=== PATIENT | female | born 1955 | race American Indian/Alaskan Native ===

== ENCOUNTER 2016-12-15 11:11 | Emergency (ER) | payer BC, OTHER ==
[2016-12-15 11:31] VITALS: BP 169/86
[2016-12-15] MEDS ORDERED: Ondansetron 4 MG/2 ML SDV IV ONE (11:39)
[2016-12-15] MEDS ORDERED: Sodium Chloride 0.9% 1,000 ML IV ONE (11:39)
[2016-12-15] MEDS ORDERED: Sodium Chloride 0.9% 10 ML Syringe FLUSH PRN (11:39)
[2016-12-15] MEDS ORDERED: Ketorolac 30 MG/ML SDV IVPUSH ONE (11:40)
[2016-12-15] MEDS ORDERED: cefTRIAXone 1 GM in Sodium Chloride 0.9% 50 ML IV ONE (11:40)
[2016-12-15 12:26] LABS: CHLORIDE,CL 103 mmol/L (101-111); SODIUM,NA 141 mmol/L (135-145)
--- NOTE | 2016-12-15 12:36 | EDM.PDOC ---
Scribed by Vicenta Cuellar 12/15/16 1234 for Valdemar Crump MD ED HPI GENERAL MEDICAL PROBLEM - General Chief Complaint: Genitourinary Problem Stated Complaint: [id number] KIDNEY INFECTION OR UTI Time Seen by Provider: 12/15/16 11:36 Source of Information: Reports: Patient, RN, RN Notes Reviewed History Limitations: Reports: No Limitations - History of Present Illness INITIAL COMMENTS - FREE TEXT/NARRATIVE: Complaint of onset of mild dysuria 3 days ago which has worsened and last evening developed fever and chills with bilateral flank pain and nausea. Admits to suprapubic abdominal pain Denies vomiting or blood in in urine. Quality: Reports: Ache Severity: Severe Improves with: Reports: None Worsens with: Reports: None Associated Symptoms: Reports: No Other Symptoms Bilateral Lower Back Pain Score (Numeric/FACES): 8 - Related Data Allergies Allergy/AdvReac Type Severity Reaction Status Date / Time codeine Allergy Cannot Verified 12/15/16 11:32 Remember gabapentin Allergy Cannot Verified 12/15/16 11:32 Remember morphine Allergy Rash Verified 12/15/16 11:32 venom-honey bee Allergy Cannot Verified 12/15/16 11:32 [bee venom (honey bee)] Remember Home Meds: Home Meds Aspirin [Aspirin EC] 1 tab PO DAILY 12/30/13 [History] Ibuprofen [Motrin] 1 tab PO ASDIRECTED PRN 12/30/13 [History] Lisinopril [Prinivil] 20 mg PO DAILY 12/30/13 [History] Tamoxifen [Nolvadex] 20 mg PO DAILY 12/30/13 [History] Triamterene/Hydrochlorothiazid [Triamterene-HCTZ 37.5-25 MG] 1 tab PO ASDIRECTED 12/30/13 [History] Venlafaxine HCl [Venlafaxine HCl ER] 75 mg PO BID 12/30/13 [History] Pantoprazole [ProTONIX] 40 mg PO BID 03/12/16 [History] Albuterol Sulfate [Proventil Hfa] 6.7 gm IH Q6HR PRN #1 hfa.aer.ad 03/13/16 [Rx] Amoxicillin/Potassium Clav [Augmentin 875-125 Tablet] 1 each PO BID #14 tablet 03/13/16 [Rx] Benzocaine/Cetylpyrd/Menthol [Cepacol Sore Throat] 1 lozenge MUCMEM Q4HR PRN # 15 frida 03/13/16 [Rx] Fluticasone/Salmeterol [Advair Diskus 100-50] 1 puff INH BID #1 diskus 03/13/16 [Rx] guaiFENesin [Robitussin] 100 mg PO Q6H PRN #100 ml 03/13/16 [Rx] predniSONE [Prednisone] 10 mg PO DAILY #20 tab.ds.pk 03/13/16 [Rx] Past Medical History HEENT History: Reports: None Cardiovascular History: Reports: High Cholesterol, Hypertension Respiratory History: Reports: Asthma, COPD Other Gastrointestinal History: fatty liver Genitourinary History: Reports: None 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 Musculoskeletal History: Reports: None Neurological History: Reports: None Psychiatric History: Reports: Anxiety, Depression Endocrine/Metabolic History: Reports: None Oncologic (Cancer) History: Reports: Breast Dermatologic History: Reports: None - Past Surgical History Musculoskeletal Surgical History: Reports: Carpal Tunnel Social & Family History - Family History Family Medical History: Noncontributory Cardiac: Reports: CAD, High Cholesterol, Hypertension, [place] Respiratory: Reports: COPD GI: Reports: Cholelithiasis Endocrine/Metabolic: Reports: Diabetes, type II Oncologic: Reports: Breast - Tobacco Use Smoking Status *Q: Heavy Tobacco Smoker Years of Tobacco use: 30 Packs/Tins Daily: 0.5 Second Hand Smoke Exposure: Yes - Alcohol Use Days Per Week of Alcohol Use: 0 - Recreational Drug Use Recreational Drug Use: No - Living Situation & Occupation Living situation: Reports: with Family, Single Occupation: Employed ED ROS GENERAL - Review of Systems Review Of Systems: ROS reveals no pertinent complaints other than HPI. ED EXAM, RENAL/ - Physical Exam Exam: See Below Exam Limited By: No Limitations General Appearance: Alert, WD/WN, No Apparent Distress, Obese Eye Exam: Bilateral Eye: Normal Inspection Head: Atraumatic, Normocephalic Neck: Normal Inspection, Supple, Non-Tender, Full Range of Motion Respiratory/Chest: No Respiratory Distress, Lungs Clear, Normal Breath Sounds, No Accessory Muscle Use, Chest Non-Tender Cardiovascular: Regular Rate, Rhythm, Tachycardia GI/Abdominal: Normal Bowel Sounds, Soft, Non-Tender, No Distention, No Abnormal Bruit, Other (mild suprapubic tenderness to palpation, otherwise normal. Obese abdominal exam.). No: Guarding, Rigid, Rebound (Female) Exam: Deferred Rectal (Female) Exam: Deferred Back Exam: Full Range of Motion, CVA Tenderness (L), CVA Tenderness (R) Extremities: Normal Inspection Neurological: Alert, Oriented, CN II-XII Intact, Normal Cognition, Normal Gait, Normal Reflexes, No Motor/Sensory Deficits Psychiatric: Normal Affect, Normal Mood Skin Exam: Warm, Dry, Intact, Normal Color, No Rash Course - Vital Signs Last Recorded V/S: Last Vital Signs Temp 35.9 C 12/15/16 11:29 Pulse 103 H 12/15/16 11:29 Resp 18 12/15/16 11:29 BP 169/86 H 12/15/16 11:29 Pulse Ox 95 12/15/16 11:29 - Orders/Labs/Meds Orders: Active Orders 24 hr Category Date Time Status Peripheral IV Care [RC] . DIRECTED Care 12/15/16 11:39 Active CULTURE URINE [RM] Stat Lab 12/15/16 11:25 Received Sodium Chloride 0.9% [Normal Saline] 1,000 ml Med 12/15/16 11:39 Active IV .BOLUS Sodium Chloride 0.9% [Saline Flush] Med 12/15/16 11:39 Active 10 ml FLUSH ASDIRECTED PRN Peripheral IV Insertion Adult [OM.PC] Stat Oth 12/15/16 11:39 Ordered Medication Orders Sodium Chloride (Normal Saline) 1,000 mls @ 999 mls/hr IV .BOLUS ONE Stop: 12/15/16 12:39 Last Admin: 12/15/16 11:58 Dose: 999 mls/hr Sodium Chloride (Saline Flush) 10 ml FLUSH ASDIRECTED PRN PRN Reason: Keep Vein Open Last Admin: 12/15/16 11:58 Dose: 10 ml Labs: Laboratory Tests 12/15/16 12/15/16 12/15/16 Range/Units 11:25 12:00 12:00 WBC 11.5 H (5.0-10.0) 10^3/uL RBC 5.29 (4.2-5.4) 10^6/uL Hgb 15.7 (12.0-16.0) g/dL Hct 47.3 H (37.0-47.0) % MCV 89.4 (80-100) fL MCH 29.7 (27.0-34.0) pg MCHC 33.2 (33.0-35.0) g/dL Plt Count 213 (150-450) 10^3/uL Neut % (Auto) 66.7 (42.2-75.2) % Lymph % (Auto) 22.5 (20.5-50.1) % [place] % (Auto) 8.6 H (2-8) % Eos % (Auto) 1.7 (1.0-3.0) % Baso % (Auto) 0.5 (0.0-1.0) % Sodium 141 (135-145) mmol/L Potassium 4.0 (3.6-5.0) mmol/L Chloride 103 (101-111) mmol/L Carbon Dioxide 26.0 (21.0-31.0) mmol/L Anion Gap 16.0 BUN 19 H (7-18) mg/dL Creatinine 0.9 (0.6-1.3) mg/dL Est Cr Clr Drug Dosing 57.10 mL/min Estimated GFR (MDRD) > 60 Glucose 102 (74-105) mg/dL Calcium 9.1 (8.4-10.2) mg/dl Urine Color Yellow (YELLOW) Urine Appearance Cloudy (CLEAR) Urine pH 8.0 (5.0-9.0) Ur Specific [place] 1.015 (1.005-1.030) Urine Protein 30 H (NEGATIVE) Urine Glucose (UA) Negative (NEGATIVE) Urine Ketones Negative (NEGATIVE) Urine Occult Blood Moderate H (NEGATIVE) Urine Nitrite Negative (NEGATIVE) Urine Bilirubin Negative (NEGATIVE) Urine Urobilinogen 0.2 (0.2-1.0) mg/dL Ur Leukocyte Esterase Large H (NEGATIVE) Urine RBC 40-50 H /HPF Urine WBC >100 H (0-5/HPF) /HPF Ur Epithelial Cells Few /HPF Urine Bacteria Few (0-FEW/HPF) /HPF Meds: Medications Generic Name Dose Route Start Last Admin Trade Name Freq PRN Reason Stop Dose Admin Sodium Chloride 1,000 mls @ 999 mls/hr 12/15/16 11:39 12/15/16 11:58 Normal Saline IV 12/15/16 12:39 999 mls/hr .BOLUS ONE Administration Sodium Chloride 10 ml 07/08/17 11:39 12/15/16 11:58 Saline Flush FLUSH 10 ml ASDIRECTED PRN Administration Keep Vein Open Discontinued Medications Generic Name Dose Route Start Last Admin Trade Name Jay PRN Reason Stop Dose Admin Ceftriaxone Sodium 1 gm/ 50 mls @ 100 mls/hr 12/15/16 11:40 12/15/16 11:58 Sodium Chloride IV 12/15/16 12:09 100 mls/hr ONETIME ONE Administration Ketorolac Tromethamine 30 mg 12/15/16 11:40 12/15/16 11:57 Toradol IVPUSH 12/15/16 11:41 30 mg ONETIME ONE Administration Ondansetron HCl 4 mg 12/15/16 11:39 12/15/16 11:58 Zofran IV 12/15/16 11:40 4 mg ONETIME ONE Administration Departure - Departure Time of Disposition: 12:31 Disposition: Home, Self-Care 01 Condition: Fair Clinical Impression: Pyelonephritis, Dehydration - Discharge Information Instructions: Pyelonephritis, Adult, [id number], Dehydration, Adult, Easy-to- Read Forms: ED Department Discharge Additional Instructions: RX: Phenergan 25mg. *Do not drive while under the influence of this medication. RX: Cipro 500mg. Drink plenty of water. Follow up clinic in 12-17 for urine recheck. - My Orders Last 24 Hours: My Active Orders 12/15/16 11:25 CULTURE URINE [RM] Stat 12/15/16 11:39 Peripheral IV Care [RC] . DIRECTED Sodium Chloride 0.9% [Normal Saline] 1,000 ml IV .BOLUS Sodium Chloride 0.9% [Saline Flush] 10 ml FLUSH ASDIRECTED PRN Peripheral IV Insertion Adult [OM.PC] Stat - Assessment/Plan Last 24 Hours: My Active Orders 12/15/16 11:25 CULTURE URINE [RM] Stat 12/15/16 11:39 Peripheral IV Care [RC] . DIRECTED Sodium Chloride 0.9% [Normal Saline] 1,000 ml IV .BOLUS Sodium Chloride 0.9% [Saline Flush] 10 ml FLUSH ASDIRECTED PRN Peripheral IV Insertion Adult [OM.PC] Stat I have read and agree with the documentation that has been completed regarding this visit. By signing this record, I attest that the documentation was completed in my physical presence and is an accurate record of the encounter.
== END 2016-12-15 13:24 | disposition home or self-care (01) ==
LOC: DL.ED 11:11
DX: N12 Tubulo-interstitial nephritis, not specified as acute or chronic (principal); E86.0 Dehydration; E78.00 Pure hypercholesterolemia, unspecified; I10 Essential (primary) hypertension; J45.909 Unspecified asthma, uncomplicated; J44.9 Chronic obstructive pulmonary disease, unspecified; F41.9 Anxiety disorder, unspecified; F32.9 Major depressive disorder, single episode, unspecified; F17.210 Nicotine dependence, cigarettes, uncomplicated; Z88.5 Allergy status to narcotic agent; Z88.6 Allergy status to analgesic agent; Z88.8 Allergy status to other drugs, medicaments and biological substances; Z91.030 Bee allergy status; Z79.82 Long term (current) use of aspirin; Z79.899 Other long term (current) drug therapy
CPT/HCPCS: 36415; 80048; 81001; 85025; 87086; 96361; 96365; 96375; 99283; J0696; J1885; J2405; J7030; J7050; 87088; 87186

== ENCOUNTER 2017-02-01 18:29 | Emergency (ER) | payer BC, OTHER ==
[2017-02-01 19:02] VITALS: BP 136/79
--- NOTE | 2017-02-01 19:11 | EDM.PDOC ---
ED HPI GENERAL MEDICAL PROBLEM - General Chief Complaint: Eye Problems Stated Complaint: EYES [id number] Time Seen by Provider: 02/01/17 19:06 Source of Information: Reports: Patient History Limitations: Reports: No Limitations - History of Present Illness INITIAL COMMENTS - FREE TEXT/NARRATIVE: states has long h/o eye problems, seen MD told to use regular drops but if need to then get ABX. - Related Data Allergies Allergy/AdvReac Type Severity Reaction Status Date / Time codeine Allergy Cannot Verified 02/01/17 19:01 Remember gabapentin Allergy Cannot Verified 02/01/17 19:01 Remember morphine Allergy Rash Verified 02/01/17 19:01 venom-honey bee Allergy Cannot Verified 02/01/17 19:01 [bee venom (honey bee)] Remember Home Meds: Home Meds Aspirin [Aspirin EC] 1 tab PO DAILY 12/30/13 [History] Ibuprofen [Motrin] 1 tab PO ASDIRECTED PRN 12/30/13 [History] Lisinopril [Prinivil] 20 mg PO DAILY 12/30/13 [History] Tamoxifen [Nolvadex] 20 mg PO DAILY 12/30/13 [History] Triamterene/Hydrochlorothiazid [Triamterene-HCTZ 37.5-25 MG] 1 tab PO ASDIRECTED 12/30/13 [History] Venlafaxine HCl [Venlafaxine HCl ER] 75 mg PO BID 12/30/13 [History] Pantoprazole [ProTONIX] 40 mg PO BID 03/12/16 [History] Albuterol Sulfate [Proventil Hfa] 6.7 gm IH Q6HR PRN #1 hfa.aer.ad 03/13/16 [Rx] Fluticasone/Salmeterol [Advair Diskus 100-50] 1 puff INH BID #1 diskus 03/13/16 [Rx] Magnesium Oxide [Magnesium] 800 mg PO DAILY 02/01/17 [History] Past Medical History HEENT History: Reports: None Cardiovascular History: Reports: High Cholesterol, Hypertension Respiratory History: Reports: Asthma, COPD Other Gastrointestinal History: fatty liver Genitourinary History: Reports: None [employer]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 Musculoskeletal History: Reports: None Neurological History: Reports: None Psychiatric History: Reports: Anxiety, Depression Endocrine/Metabolic History: Reports: None Oncologic (Cancer) History: Reports: Breast Dermatologic History: Reports: None - Past Surgical History Musculoskeletal Surgical History: Reports: Carpal Tunnel Social & Family History - Family History Family Medical History: Noncontributory Cardiac: Reports: CAD, High Cholesterol, Hypertension, [place] Respiratory: Reports: COPD GI: Reports: Cholelithiasis Endocrine/Metabolic: Reports: Diabetes, type II Oncologic: Reports: Breast - Tobacco Use Smoking Status *Q: Heavy Tobacco Smoker Years of Tobacco use: 30 Packs/Tins Daily: 0.5 Second Hand Smoke Exposure: Yes - Alcohol Use Days Per Week of Alcohol Use: 0 - Recreational Drug Use Recreational Drug Use: No - Living Situation & Occupation Living situation: Reports: with Family, Single Occupation: Employed ED ROS GENERAL - Review of Systems Review Of Systems: ROS reveals no pertinent complaints other than HPI. ED EXAM GENERAL W FULL EYE - Physical Exam Exam: See Below Exam Limited By: No Limitations General Appearance: Alert, WD/WN, No Apparent Distress Eye Exam: Bilateral Eye: Conjunctival Injection (mild) Eyelids: Bilateral: Edema (mild), Erythema (mild) Conjunctiva & Sclera: Bilateral: Injected (minimal) Cornea Exam: Bilateral: Normal Appearance Extraocular Movements: Bilateral: Intact Pupillary Size: Bilateral: 4 mm Pupillary Reaction: Bilateral: Brisk Anterior Chamber: Bilateral: Normal Appearance Ears: Hearing Grossly Normal Throat/Mouth: Normal Voice, No Airway Compromise Head: Atraumatic Neck: Non-Tender, Full Range of Motion Respiratory/Chest: No Respiratory Distress Cardiovascular: Regular Rate, Rhythm GI/Abdominal: Soft, Non-Tender Neurological: Alert, Oriented, Normal Cognition, Normal Gait, No Motor/Sensory Deficits Psychiatric: Normal Affect, Normal Mood Skin Exam: Warm, Dry, Normal Color Lymphatic: No Adenopathy Course - Vital Signs Last Recorded V/S: Last Vital Signs Temp 35.9 C 02/01/17 18:59 Pulse 95 02/01/17 18:59 Resp 18 02/01/17 18:59 BP 136/79 02/01/17 18:59 Pulse Ox 95 02/01/17 18:59 Departure - Departure Time of Disposition: 19:09 Disposition: Home, Self-Care 01 Condition: Good Clinical Impression: Conjunctivitis Qualifiers: Conjunctivitis type: serous Laterality: bilateral Qualified Code(s): H10.233 - Serous conjunctivitis, except viral, bilateral - Discharge Information Instructions: Bacterial Conjunctivitis, [id number] Additional Instructions: 1) don't rub eyes 2) keep eyes clean 3) follow up at clinic or recheck as needed rx given; gentamycin eye drops 2 drops qid x 1 week
== END 2017-02-01 19:13 | disposition home or self-care (01) ==
LOC: DL.ED 18:29
DX: H10.233 Serous conjunctivitis, except viral, bilateral (principal); E78.00 Pure hypercholesterolemia, unspecified; I10 Essential (primary) hypertension; J44.9 Chronic obstructive pulmonary disease, unspecified; F41.9 Anxiety disorder, unspecified; F32.9 Major depressive disorder, single episode, unspecified; F17.210 Nicotine dependence, cigarettes, uncomplicated; Z79.899 Other long term (current) drug therapy; Z79.82 Long term (current) use of aspirin; Z88.5 Allergy status to narcotic agent; Z91.030 Bee allergy status
CPT/HCPCS: 99283

== ENCOUNTER 2017-03-09 13:07 | Emergency (ER) | payer BC, OTHER | END 2017-03-09 14:13 | disposition left against medical advice (07) | LOC: DL.ED 13:07 | DX: Z53.21 Procedure and treatment not carried out due to patient leaving prior to being seen by health care provider (principal) ==

== ENCOUNTER 2018-09-06 15:21 | Emergency (ER) | payer BC, OTHER ==
[2018-09-06] MEDS ORDERED: Acetaminophen/HYDROcodone 325-5 MG Tab PO ONE (15:22)
[2018-09-06] MEDS ORDERED: Ondansetron 4 MG/2 ML SDV IV ONE (15:53)
[2018-09-06] MEDS ORDERED: Ketorolac 30 MG/ML SDV IVPUSH ONE (15:53)
[2018-09-06] MEDS ORDERED: Lactated Ringers 1,000 ML IV ONE (15:54)
[2018-09-06] MEDS ORDERED: diphenhydrAMINE 50 MG/ML SDV IVPUSH ONE (16:29)
--- NOTE | 2018-09-06 16:29 | EDM.PDOC ---
ED HPI GENERAL MEDICAL PROBLEM - General Chief Complaint: Abdominal Pain Stated Complaint: SHARP PAIN, RIGHT SIDE Time Seen by Provider: 09/06/18 16:29 Source of Information: Reports: Patient History Limitations: Reports: No Limitations - History of Present Illness INITIAL COMMENTS - FREE TEXT/NARRATIVE: Patient comes emergency Department today with complaints of right upper abdominal pain and right flank pain. Suddenly about 1 hour prior to arrival the patient had very severe rather rapid onset of what she felt was a muscle spasm on the right upper abdominal region and into her flank region on her back. She is nauseated without vomiting. She's never had any pain like this before. She denies any injury to the area. She denies any hematuria dysuria or urinary frequency. She recently had a CT scan for questionable mass on her pancreas. She has no fever no chills. No weakness dizziness lightheadedness. No palpitations. No rash or lesions. No black or tarry stools. - Related Data Allergies Allergy/AdvReac Type Severity Reaction Status Date / Time codeine Allergy Cannot Verified 05/17/18 23:45 Remember gabapentin Allergy Cannot Verified 05/17/18 23:45 Remember morphine Allergy Rash Verified 05/17/18 23:45 venom-honey bee Allergy Cannot Verified 05/17/18 23:45 [bee venom (honey bee)] Remember Home Meds: Home Meds Aspirin [Aspirin EC] 1 tab PO DAILY 12/30/13 [History] Ibuprofen [Motrin] 1 tab PO ASDIRECTED PRN 12/30/13 [History] Lisinopril [Prinivil] 20 mg PO DAILY 12/30/13 [History] Triamterene/Hydrochlorothiazid [Triamterene-HCTZ 37.5-25 MG] 1 tab PO ASDIRECTED 12/30/13 [History] Venlafaxine HCl [Venlafaxine HCl ER] 75 mg PO BID 12/30/13 [History] Pantoprazole [ProTONIX] 40 mg PO BID 03/12/16 [History] Albuterol Sulfate [Proventil Hfa] 6.7 gm IH Q6HR PRN #1 hfa.aer.ad 03/13/16 [Rx] Fluticasone/Salmeterol [Advair Diskus 100-50] 1 puff INH BID #1 diskus 03/13/16 [Rx] Magnesium Oxide [Magnesium] 800 mg PO DAILY 02/01/17 [History] Calcium Carbonate/Vitamin D3 [Calcium 250+D] 1 tab PO DAILY 05/17/18 [History] Multivitamin [Multivitamins] 1 tab PO DAILY 05/17/18 [History] Past Medical History HEENT History: Reports: Impaired Vision Other HEENT History: wears corrective lenses Cardiovascular History: Reports: High Cholesterol, Hypertension Respiratory History: Reports: Asthma, COPD Other Gastrointestinal History: fatty liver Genitourinary History: Reports: Renal Calculus Other Genitourinary History: distant history of renal stone 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 Musculoskeletal History: Reports: None Neurological History: Reports: None Psychiatric History: Reports: Anxiety, Depression Endocrine/Metabolic History: Reports: None Oncologic (Cancer) History: Reports: Breast Dermatologic History: Reports: None - Past Surgical History Musculoskeletal Surgical History: Reports: Carpal Tunnel Social & Family History - Family History Family Medical History: Noncontributory Cardiac: Reports: CAD, High Cholesterol, Hypertension, [place] Respiratory: Reports: COPD GI: Reports: Cholelithiasis Endocrine/Metabolic: Reports: Diabetes, type II Oncologic: Reports: Breast - Caffeine Use Caffeine Use: Reports: Coffee - Living Situation & Occupation Living situation: Reports: with Family, Single Occupation: Employed ED ROS GENERAL - Review of Systems Review Of Systems: ROS reveals no pertinent complaints other than HPI. ED EXAM, GI/ABD - Physical Exam Exam: See Below Exam Limited By: No Limitations General Appearance: Alert, WD/WN, No Apparent Distress Ears: Normal External Exam Nose: Normal Inspection Throat/Mouth: Normal Inspection, Normal Oropharynx Head: Atraumatic, Normocephalic Neck: Normal Inspection, Supple, Non-Tender, Full Range of Motion Respiratory/Chest: No Respiratory Distress, Lungs Clear, Normal Breath Sounds, No Accessory Muscle Use, Chest Non-Tender Cardiovascular: Normal Peripheral Pulses, Regular Rate, Rhythm, No Edema GI/Abdominal Exam: Normal Bowel Sounds, Soft, Pelvis Stable, Tender (RUQ with even the lightest palpation. No bruising swelling ecchymosis to the abd. The rest of the abd is soft none tender and none distended. ). No: Guarding, Rigid , Rebound Back Exam: Full Range of Motion, CVA Tenderness (R). No: CVA Tenderness (L) Extremities: Normal Inspection, Normal Range of Motion, Non-Tender, No Pedal Edema, Normal Capillary Refill Neurological: Alert, Oriented, Normal Cognition, No Motor/Sensory Deficits Psychiatric: Normal Affect, Normal Mood Skin Exam: Warm, Dry, Intact, Normal Color, No Rash Course - Vital Signs Last Recorded V/S: Last Vital Signs Temp 37.2 C 09/06/18 18:09 Pulse 74 09/06/18 18:09 Resp 16 09/06/18 18:09 BP 124/68 09/06/18 18:09 Pulse Ox 99 09/06/18 18:09 - Orders/Labs/Meds Labs: Laboratory Tests 09/06/18 09/06/18 09/06/18 Range/Units 15:55 16:01 16:01 WBC 12.9 H (5.0-10.0) 10^3/uL RBC 5.52 H (4.2-5.4) 10^6/uL Hgb 16.1 H D (12.0-16.0) g/dL Hct 48.2 H (37.0-47.0) % MCV 87.3 (80-100) fL MCH 29.2 (27.0-34.0) pg MCHC 33.4 (33.0-35.0) g/dL Plt Count 304 (150-450) 10^3/uL Neut % (Auto) 59.5 (42.2-75.2) % Lymph % (Auto) 28.4 (20.5-50.1) % [place] % (Auto) 9.5 H (2-8) % Eos % (Auto) 2.3 (1.0-3.0) % Baso % (Auto) 0.3 (0.0-1.0) % Sodium 135 (135-145) mmol/L Potassium 3.7 (3.6-5.0) mmol/L Chloride 98 L (101-111) mmol/L Carbon Dioxide 22.0 (21.0-31.0) mmol/L Anion Gap 18.7 BUN 23 H (7-18) mg/dL Creatinine 1.0 (0.6-1.3) mg/dL Est Cr Clr Drug Dosing TNP Estimated GFR (MDRD) 56 BUN/Creatinine Ratio 23.00 Glucose 138 H (74-105) mg/dL Calcium 9.5 (8.4-10.2) mg/dl Total Bilirubin 0.7 (0.2-1.0) mg/dL AST 32 (10-42) IU/L ALT 34 (10-60) IU/L Alkaline Phosphatase 113 (42-121) IU/L Total Protein 8.2 (6.7-8.2) g/dl Albumin 4.1 (3.2-5.5) g/dl Globulin 4.1 Albumin/Globulin Ratio 1.00 Amylase 24 L (28-100) U/L Lipase 43 (22-51) U/L Urine Color Yellow (YELLOW) Urine Appearance Clear (CLEAR) Urine pH 6.0 (5.0-9.0) Ur Specific [place] 1.010 (1.005-1.030) Urine Protein Negative (NEGATIVE) Urine Glucose (UA) Negative (NEGATIVE) Urine Ketones Negative (NEGATIVE) Urine Occult Blood Trace-intact H (NEGATIVE) Urine Nitrite Negative (NEGATIVE) Urine Bilirubin Negative (NEGATIVE) Urine Urobilinogen 0.2 (0.2-1.0) mg/dL Ur Leukocyte Esterase Negative (NEGATIVE) Urine RBC 0-5 /HPF Urine WBC 0-5 (0-5/HPF) /HPF Ur Epithelial Cells Moderate H /HPF Urine Bacteria Rare (0-FEW/HPF) /HPF Meds: Medications Discontinued Medications Generic Name Dose Route Start Last Admin Trade Name Jay PRN Reason Stop Dose Admin Hydrocodone Bitart/Acetaminophen Confirm 09/06/18 18:52 [place] 325-5 Mg Administered 09/06/18 18:53 Dose 3 tab .ROUTE .STK-MED ONE Al Hydroxide/Mg Hydroxide 30 ml 09/06/18 18:24 09/06/18 18:28 Gi Cocktail PO 09/06/18 18:25 30 ml ONETIME ONE Administration Diphenhydramine HCl 25 mg 09/06/18 16:29 09/06/18 17:05 Benadryl IVPUSH 09/06/18 16:30 25 mg ONETIME ONE Administration Lactated Ringer's 1,000 mls @ 999 mls/hr 09/06/18 15:54 09/06/18 16:15 Ringers, Lactated IV 09/06/18 16:54 999 mls/hr .BOLUS ONE Administration Iopamidol 100 ml 09/06/18 17:05 09/06/18 17:10 Isovue-300 (61%) IVPUSH 09/06/18 17:06 100 ml ONETIME ONE Administration Ketorolac Tromethamine 30 mg 09/06/18 15:53 09/06/18 16:15 Toradol IVPUSH 09/06/18 15:54 30 mg ONETIME ONE Administration Ondansetron HCl 4 mg 09/06/18 15:53 09/06/18 16:15 Zofran IV 09/06/18 15:54 4 mg ONETIME ONE Administration Orphenadrine Citrate 30 mg 09/06/18 16:28 09/06/18 17:05 Norflex IV 09/06/18 16:29 30 mg NOW STA Administration - Re-Assessments/Exams Free Text/Narrative Re-Assessment/Exam: 09/06/18 18:26 She was given a liter of LR wide open. Ketorolac 30 mg IV push. Zofran 4 mg IV push. Benadryl 25 mg IV push Norflex 60 mg IV push. Urinalysis has a trace of blood otherwise negative. 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 Some incidental findings of severe displaced narrowing of the lumbar spine. No acute abnormality in the abdomen or pelvis. . . 09/06/18 19:31 Gi cocktail without change of the symptoms. The patients pain is much improved following the above therapy. Repeat evaluation shows some mild tenderness in the right upper quadrant but otherwise no rebound or guarding. Her CT scan is really negative for any acute pathology as well as her laboratory evaluation. I' m unsure of what causing her pain and I wonder if she doesn't develop a rash in the next couple of days that she may have shingles. I do not see any evidence of it at this time but I don't have any other explanation for her pain. We will discharge her home with some hydrocortisone recheck if anything new or worse she is comfortable with this plan and her questions are answered. Departure - Departure Time of Disposition: 18:49 Disposition: Home, Self-Care 01 Clinical Impression: Abdominal pain Qualifiers: Abdominal location: unspecified location Qualified Code(s): R10.9 - Unspecified abdominal pain Abdominal mass Qualifiers: Abdominal location: unspecified location Qualified Code(s): R19.00 - Intra- abdominal and pelvic swelling, mass and lump, unspecified site - Discharge Information Referrals: PCP,None [Primary Care Provider] - Forms: ED Department Discharge Additional Instructions: Tylenol and or Ibuprofen as needed for pain. increase fluids over the next few days. If pain not controlled with above. [place] 1 tablet every 6 hrs as needed for pain. Caution sedation. RX given to the patient and 3 sent home from the ED. Follow up with PCP middle of next week for recheck and continued care for the anterior gastric wall mass. Consider EGD. Return to the ED if new or worsening symptoms. IF rash develops consider shingles as well. - Assessment/Plan Assessment:: RUQ RFlank pain, unknown etiology. Gastric wall mass chronic. Plan: Tylenol and/or ibuprofen as needed for pain. Ice to the sore area. Wash the laceration twice daily with soap and water. Bacitracin over-the- counter and bandage until healed. Watch for signs of infections. Keep the area clean and covered until healed. Sutures out in 10 days. Return to the ED if new or worsening symptoms Follow up with PCP in the next 4-6 days if concerns or problems. Wear the splint to the finger for the next 5 days. May take off to shower and wash hand.
[2018-09-06 16:30] LABS: ANION GAP 18.7; CHLORIDE,CL 98 mmol/L (101-111); SODIUM,NA 135 mmol/L (135-145)
[2018-09-06] MEDS ORDERED: Iopamidol 612 MG/ML 100 ML Bottle IVPUSH ONE (17:05)
[2018-09-06 18:09] VITALS: BP 124/68
[2018-09-06] MEDS ORDERED: GI Cocktail Oral Solution 30 ML PO ONE (18:24)
[2018-09-06] MEDS ORDERED: Acetaminophen/HYDROcodone 325-5 MG Tab ONE (18:52)
== END 2018-09-06 18:56 | disposition home or self-care (01) ==
LOC: DL.ED 15:21
DX: R19.00 Intra-abdominal and pelvic swelling, mass and lump, unspecified site (principal); R10.11 Right upper quadrant pain; E78.00 Pure hypercholesterolemia, unspecified; I10 Essential (primary) hypertension; J44.9 Chronic obstructive pulmonary disease, unspecified; F41.9 Anxiety disorder, unspecified; F32.9 Major depressive disorder, single episode, unspecified; Z88.5 Allergy status to narcotic agent; Z88.8 Allergy status to other drugs, medicaments and biological substances; Z91.030 Bee allergy status; Z79.899 Other long term (current) drug therapy; Z79.82 Long term (current) use of aspirin
CPT/HCPCS: 36415; 74177; 80053; 81001; 82150; 83690; 85025; 96365; 96375; 99284; A9270; J1200; J1885; J2360; J2405; J7120; Q9967

== ENCOUNTER 2019-06-29 20:37 | Emergency (ER) | payer BC, OTHER ==
[2019-06-29 20:53] VITALS: BP 140/69; PULSE 100
[2019-06-29] MEDS ORDERED: Nitrofurantoin Monohydrate/Macrocrystalline 100 MG Cap PO ONE (21:27)
[2019-06-29] MEDS ORDERED: Phenazopyridine 95 MG Tab PO ONE (21:27)
--- NOTE | 2019-06-29 21:29 | EDM.PDOC ---
ED HPI GENERAL MEDICAL PROBLEM - General Chief Complaint: Genitourinary Problem Stated Complaint: BLADDER, PAIN, Time Seen by Provider: 06/29/19 21:00 Source of Information: Reports: Patient, RN, RN Notes Reviewed History Limitations: Reports: No Limitations - History of Present Illness INITIAL COMMENTS - FREE TEXT/NARRATIVE: patient presents to ER with complaint of frequency, urgency, burning with urination. Patient states this began a day or 2 ago, and has progressively gotten worse. Patient states she has had fever and chills from time to time, none at this time. Patient admits to some nausea but denies any vomiting or diarrhea. Patient complains of some flank pain bilaterally. Onset: Gradual Bladder Pain Score (Numeric/FACES): 8 - Related Data Allergies Allergy/AdvReac Type Severity Reaction Status Date / Time codeine Allergy Cannot Verified 06/29/19 20:47 Remember gabapentin Allergy Cannot Verified 06/29/19 20:47 Remember morphine Allergy Rash Verified 06/29/19 20:47 venom-honey bee Allergy Cannot Verified 06/29/19 20:47 [bee venom (honey bee)] Remember Home Meds: Home Meds Aspirin [Aspirin EC] 1 tab PO DAILY 12/30/13 [History] Ibuprofen [Motrin] 1 tab PO ASDIRECTED PRN 12/30/13 [History] Triamterene/Hydrochlorothiazid [Triamterene-HCTZ 37.5-25 MG] 1 tab PO ASDIRECTED 12/30/13 [History] Venlafaxine HCl [Venlafaxine HCl ER] 75 mg PO BID 12/30/13 [History] lisinopriL [Prinivil] 20 mg PO DAILY 12/30/13 [History] Pantoprazole [ProTONIX] 40 mg PO BID 03/12/16 [History] Albuterol Sulfate [Proventil Hfa] 6.7 gm IH Q6HR PRN #1 hfa.aer.ad 03/13/16 [Rx] Fluticasone/Salmeterol [Advair Diskus 100-50] 1 puff INH BID #1 diskus 03/13/16 [Rx] Magnesium Oxide [Magnesium] 800 mg PO DAILY 02/01/17 [History] Calcium Carbonate/Vitamin D3 [Calcium 250+D] 1 tab PO DAILY 05/17/18 [History] Multivitamin [Multivitamins] 1 tab PO DAILY 05/17/18 [History] Past Medical History HEENT History: Reports: Impaired Vision Other HEENT History: wears corrective lenses Cardiovascular History: Reports: High Cholesterol, Hypertension Respiratory History: Reports: Asthma, COPD Other Gastrointestinal History: fatty liver Genitourinary History: Reports: Renal Calculus Other Genitourinary History: distant history of renal stone [employer] History: Reports: None Musculoskeletal History: Reports: None Neurological History: Reports: None Psychiatric History: Reports: Anxiety, Depression Endocrine/Metabolic History: Reports: None Oncologic (Cancer) History: Reports: Breast Dermatologic History: Reports: None - Past Surgical History Musculoskeletal Surgical History: Reports: Carpal Tunnel Social & Family History - Family History Family Medical History: Noncontributory Cardiac: Reports: CAD, High Cholesterol, Hypertension, [place] Respiratory: Reports: COPD GI: Reports: Cholelithiasis Endocrine/Metabolic: Reports: Diabetes, type II Oncologic: Reports: Breast - Tobacco Use Smoking Status *Q: Current Every Day Smoker Years of Tobacco use: 35 Packs/Tins Daily: 0.5 - Caffeine Use Caffeine Use: Reports: Coffee - Recreational Drug Use Recreational Drug Use: No - Living Situation & Occupation Living situation: Reports: with Family, Single Occupation: Employed ED ROS GENERAL - Review of Systems Review Of Systems: Comprehensive ROS is negative, except as noted in HPI. ED EXAM, RENAL/ - Physical Exam Exam: See Below Exam Limited By: No Limitations General Appearance: Alert, WD/WN, No Apparent Distress Eye Exam: Bilateral Eye: EOMI, Normal Inspection Ears: Normal External Exam, Hearing Grossly Normal Nose: Normal Inspection Throat/Mouth: Normal Inspection, Normal Voice, No Airway Compromise Head: Atraumatic, Normocephalic Neck: Normal Inspection, Supple, Non-Tender, Full Range of Motion Respiratory/Chest: No Respiratory Distress, Lungs Clear, Normal Breath Sounds, No Accessory Muscle Use, Chest Non-Tender Cardiovascular: Normal Peripheral Pulses, Regular Rate, Rhythm, No Edema, No Gallop, No JVD, No Murmur, No Rub GI/Abdominal: Normal Bowel Sounds, Soft, No Organomegaly, No Distention, No Abnormal Bruit, No Mass, Tender (RLQ, LLQ) (Female) Exam: Deferred Rectal (Female) Exam: Deferred Back Exam: Normal Inspection, Full Range of Motion, NT Extremities: Normal Inspection, Normal Range of Motion, Non-Tender, Normal Capillary Refill, No Pedal Edema Neurological: Alert, Oriented, CN II-XII Intact, Normal Cognition, Normal Gait, Normal Reflexes, No Motor/Sensory Deficits Psychiatric: Normal Affect, Normal Mood Skin Exam: Warm, Dry, Intact, Normal Color, No Rash Lymphatic: No Adenopathy Course - Vital Signs Last Recorded V/S: Last Vital Signs Temp 96.1 F 06/29/19 20:48 Pulse 100 06/29/19 20:48 Resp 16 06/29/19 20:48 BP 140/69 06/29/19 20:48 Pulse Ox 95 06/29/19 20:48 - Orders/Labs/Meds Orders: Active Orders 24 hr Category Date Time Status CULTURE URINE [RM] Stat Lab 06/29/19 20:45 Received Labs: Laboratory Tests 06/29/19 Range/Units 20:45 Urine Color Yellow (YELLOW) Urine Appearance Cloudy (CLEAR) Urine pH 5.5 (5.0-9.0) Ur Specific [place] 1.020 (1.005-1.030) Urine Protein Negative (NEGATIVE) Urine Glucose (UA) Negative (NEGATIVE) Urine Ketones Negative (NEGATIVE) Urine Occult Blood Small H (NEGATIVE) Urine Nitrite Negative (NEGATIVE) Urine Bilirubin Negative (NEGATIVE) Urine Urobilinogen 0.2 (0.2-1.0) mg/dL Ur Leukocyte Esterase Small H (NEGATIVE) Urine RBC 20-30 H /HPF Urine WBC 50-75 H (0-5/HPF) /HPF Ur Epithelial Cells Moderate H (NOT SEEN) /HPF Amorphous Sediment Few (NOT SEEN) /HPF Urine Bacteria Many H (0-FEW/HPF) /HPF Urine Mucus Few H (NOT SEEN) /LPF Meds: Medications Discontinued Medications Generic Name Dose Route Start Last Admin Trade Name Freq PRN Reason Stop Dose Admin Nitrofurantoin Macrocrystals 100 mg 06/29/19 21:27 06/29/19 21:44 Macrobid PO 06/29/19 21:28 100 mg ONETIME ONE Administration Phenazopyridine HCl 95 mg 06/29/19 21:27 06/29/19 21:44 Urinary Pain Relief PO 06/29/19 21:28 95 mg ONETIME ONE Administration Departure - Departure Time of Disposition: 21:28 Disposition: Home, Self-Care 01 Condition: Fair Clinical Impression: UTI, Urinary tract infectious disease - Discharge Information *PRESCRIPTION DRUG MONITORING PROGRAM REVIEWED*: No *COPY OF PRESCRIPTION DRUG MONITORING REPORT IN PATIENT DARVIN: No Instructions: Urinary Tract Infection, Adult, [id number] Forms: ED Department Discharge Additional Instructions: drink plenty of fluids Rx: Macrobid 100 mg orally twice daily for 5 days Pyridium 100 mg orally every 6 hours as needed for burning with urination Follow-up with your primary care provider if no improvement Sepsis Event Note - Evaluation Sepsis Screening Result: Possible Sepsis Risk - Focused Exam Vital Signs: Vital Signs Temp Pulse Resp BP Pulse Ox 06/29/19 20:48 96.1 F 100 16 140/69 95 Date Exam was Performed: 06/30/19 Time Exam was Performed: 02:28 - My Orders Last 24 Hours: My Active Orders 06/29/19 20:45 CULTURE URINE [RM] Stat - Assessment/Plan Last 24 Hours: My Active Orders 06/29/19 20:45 CULTURE URINE [RM] Stat
== END 2019-06-29 21:46 | disposition home or self-care (01) ==
LOC: DL.ED 20:37
DX: N39.0 Urinary tract infection, site not specified (principal); I10 Essential (primary) hypertension; J44.9 Chronic obstructive pulmonary disease, unspecified; F41.9 Anxiety disorder, unspecified; F32.9 Major depressive disorder, single episode, unspecified; F17.210 Nicotine dependence, cigarettes, uncomplicated; Z88.5 Allergy status to narcotic agent; Z88.8 Allergy status to other drugs, medicaments and biological substances; Z91.030 Bee allergy status; Z79.82 Long term (current) use of aspirin; Z79.899 Other long term (current) drug therapy
CPT/HCPCS: 81001; 87086; 87088; 87186; 99283; A9270

== ENCOUNTER → 2019-10-21 | Day surgery (SDC) | payer BC, OTHER ==
[~2019-10-21] MED LIST: Dextrose 5%-0.45% NaCl 1,000 ML IV SCH; Midazolam 1 MG/ML 2 ML SDV IV ONE; Midazolam 1 MG/ML 2 ML SDV ONE; Sodium Chloride 0.9% 10 ML Syringe FLUSH PRN; fentaNYL 100 MCG/2 ML SDV IV ONE; fentaNYL 100 MCG/2 ML SDV ONE
[2019-10-21 10:34] VITALS: BP 106/75; PULSE 79
--- NOTE | 2019-10-21 11:30 | OR ---
DATE: 10/21/2019 PROCEDURES: Esophagogastroduodenoscopy and multiple pinch biopsies. INSTRUMENT USED: [id number]-HQ190 Olympus video panendoscope. PREMEDICATIONS: No oral or topical anesthesia used. Fentanyl 100 mcg intravenous, Versed 2 mg intravenous, nasal O2 cannula. The procedure was done under pulse oximetry, BP recording, and gambling monitor. INDICATION: The patient with persistent abdominal pain, unexplained and not responsive to medical measures, on long-term low-dose aspirin and also on PPI. Esophagogastroduodenoscopy is performed for detection of any active erosive lesions, [place] esophagus and/or malignancy also under consideration, H pylori status to be determined, endoscopic hemostasis therapy if needed. PROCEDURE IN DETAIL: The scope was passed with ease. Adequate visualization of the esophagus was made from proximal to distal areas. No upper esophageal lesions identified. No distal esophageal stricture. No uphill or downhill esophageal varices. No Lana-Canales tear. No evidence of erosive esophagitis by [place] criteria. No esophageal polyp or tumor mass identified. Z-line was seen at around 40 cm distal to the oral verge, configuration consistent with grade 1 by ZAP classification. No esophageal polyp or tumor mass identified. No proximal gastric varices noted. Gastric fundus examination by retroflexion showed no polypoid lesions. Gastric folds were found to be prominent but benign in appearance. No gastric ulcer, malignant mass, or vascular ectasia identified. Scattered gastric antral erosions were noted without bleeding from them. Duodenal bulb showed no ulcer. Visualized second part of the duodenum was unremarkable. Multiple pinch biopsies were taken from the gastric antrum and proximal body and sent for PyloriTek test for H pylori, and if negative in an hour, tissue is to be sent for histopathology. No bleeding was noted from any of the visualized areas at the completion of examination. Photographs were taken of the duodenal bulb, gastric antrum, fundus, and distal esophagus. IMPRESSION: Gastric antral erosions. The patient tolerated the procedure well. [facility] /[id number]
--- NOTE | 2019-10-21 11:54 | LETTER ---
10/21/2019 Yaritza Guerra NP [facility] [address] [place] [address] RE: KEVEN MCKEON : 1955 Dear Ms. Guerra: Ms. Keven Mckeon had esophagogastroduodenoscopy done this morning and she tolerated the procedure well. I herewith send a copy of the endoscopy note and photographs for your review. Thank you. Sincerely, [facility] /[id number]
== END | disposition home or self-care (01) ==
LOC: DL.ENDO 07:04
PROVIDERS: ATTEND Internal Medicine Gastroenterology
DX: K29.50 Unspecified chronic gastritis without bleeding (principal); K25.9 Gastric ulcer, unspecified as acute or chronic, without hemorrhage or perforation; E78.5 Hyperlipidemia, unspecified; J44.9 Chronic obstructive pulmonary disease, unspecified; F17.210 Nicotine dependence, cigarettes, uncomplicated; I12.9 Hypertensive chronic kidney disease with stage 1 through stage 4 chronic kidney disease, or unspecified chronic kidney disease; E11.22 Type 2 diabetes mellitus with diabetic chronic kidney disease; N18.9 Chronic kidney disease, unspecified; E66.09 Other obesity due to excess calories; Z68.38 Body mass index [BMI] 38.0-38.9, adult; Z88.5 Allergy status to narcotic agent; Z88.8 Allergy status to other drugs, medicaments and biological substances; Z91.030 Bee allergy status; Z91.041 Radiographic dye allergy status; Z90.710 Acquired absence of both cervix and uterus; Z90.49 Acquired absence of other specified parts of digestive tract; Z98.890 Other specified postprocedural states; Z87.19 Personal history of other diseases of the digestive system
CPT/HCPCS: 43239; 87077; J2250; J3010; J7042

== ENCOUNTER 2019-10-28 20:34 | Emergency (ER) | payer BC, OTHER ==
[2019-10-28 20:57] VITALS: BP 128/55; PULSE 92
--- NOTE | 2019-10-28 21:49 | EDM.PDOC ---
ED HPI GENERAL MEDICAL PROBLEM - General Chief Complaint: Genitourinary Problem Stated Complaint: kidney pain Time Seen by Provider: 10/28/19 21:00 Source of Information: Reports: Patient History Limitations: Reports: No Limitations - History of Present Illness INITIAL COMMENTS - FREE TEXT/NARRATIVE: ED with c/o feeling tired today, and urinary frequency, going only small amounts. Hx of UTI's in past. Bilateral flank pain earlier,now improved, No fever or chills. No nausea or vomiting. Appetite decreased lately. Normal Bowel movements. Worried "kidneys are failing as tole in past she had "kidney disease ". Bilateral Flank Pain Score (Numeric/FACES): 7 - Related Data Allergies Allergy/AdvReac Type Severity Reaction Status Date / Time codeine Allergy Rash Verified 10/28/19 20:48 gabapentin Allergy Swollen Verified 10/28/19 20:48 Tongue morphine Allergy Headache Verified 10/28/19 20:48 nystatin Allergy Rash Verified 10/28/19 20:48 venom-honey bee Allergy Cannot Verified 10/28/19 20:48 [bee venom (honey bee)] Remember Home Meds: Home Meds Aspirin [Aspirin EC] 1 tab PO DAILY 12/30/13 [History] Triamterene/Hydrochlorothiazid [Triamterene-HCTZ 37.5-25 MG] 2 tab PO ASDIRECTED 12/30/13 [History] Venlafaxine HCl [Venlafaxine HCl ER] 75 mg PO BID 12/30/13 [History] lisinopriL [Prinivil] 5 mg PO DAILY 12/30/13 [History] Pantoprazole [ProTONIX] 40 mg PO BID 03/12/16 [History] Magnesium Oxide [Magnesium] 400 mg PO DAILY 02/01/17 [History] Calcium Carbonate/Vitamin D3 [Calcium 250+D] 1 tab PO DAILY 05/17/18 [History] Cholecalciferol (Vitamin D3) [Vitamin D] 1,000 unit PO DAILY 10/20/19 [History] Metoprolol Succinate [Toprol XL 50mg] 50 mg PO DAILY 10/20/19 [History] Ondansetron [Zofran] 8 mg PO DAILY PRN 10/20/19 [History] Tiotropium [place] [Spiriva Respimat] 2.5 mcg INH DAILY 05/12/20 [History] Vitamin B Complex 1,000 mcg PO DAILY 10/20/19 [History] atorvaSTATin Calcium [Lipitor] 20 mg PO DAILY 10/20/19 [History] Past Medical History HEENT History: Reports: Other (See Below) Other HEENT History: Hx of eye surgery Cardiovascular History: Reports: Hypertension Respiratory History: Reports: COPD Gastrointestinal History: Reports: GERD Other Gastrointestinal History: fatty liver Genitourinary History: Reports: Chronic Renal Insuffiency, Other (See Below) Other Genitourinary History: Stage III CKD APPOINTMENT MANAGER History: Reports: None Other APPOINTMENT MANAGER History: Hysterectomy Musculoskeletal History: Reports: Fibromyalgia Other Musculoskeletal History: Carpal tunnel surgery Neurological History: Reports: Other (See Below) Other Neuro History: Chronic pain, occipital headache, and opioid dependence Psychiatric History: Reports: Anxiety, Depression, Other (See Below) Other Psychiatric History: Opioid dependence Endocrine/Metabolic History: Reports: Diabetes, Type II, Obesity/BMI 30+ Other Endocrine/Metabolic History: Hyperlipidemia Hematologic History: Reports: B12 Deficiency Immunologic History: Reports: None Oncologic (Cancer) History: Reports: Breast Dermatologic History: Reports: None - Past Surgical History Head Surgeries/Procedures: Reports: None HEENT Surgical History: Reports: None, Adenoidectomy, Tonsillectomy Cardiovascular Surgical History: Reports: None Respiratory Surgical History: Reports: None GI Surgical History: Reports: Appendectomy, Cholecystectomy Other GI Surgeries/Procedures: liver bipopsy Female Surgical History: Reports: Hysterectomy Endocrine Surgical History: Reports: None Musculoskeletal Surgical History: Reports: Carpal Tunnel Oncologic Surgical History: Reports: Biopsy of Breast Dermatological Surgical History: Reports: None Social & Family History - Family History Family Medical History: Noncontributory Cardiac: Reports: CAD, High Cholesterol, Hypertension, [place] Respiratory: Reports: Other (See Below) Other Respiratory Family Hisory: Lung cancer GI: Reports: Cholelithiasis Other Family History: Father had kidney disease requiring dialysis OBGYN: Reports: Other (See Below) Other OBGYN Family History: Sister had breast cancer Endocrine/Metabolic: Reports: Other (See Below) Other Endocrine/Metabolic Family History: Mother had DM Oncologic: Reports: Breast - Tobacco Use Smoking Status *Q: Current Every Day Smoker Years of Tobacco use: 30 Packs/Tins Daily: 0.5 - Caffeine Use Caffeine Use: Reports: Coffee Other Caffeine Use: Soda - Recreational Drug Use Recreational Drug Use: No - Living Situation & Occupation Living situation: Reports: with Family, Single Occupation: Employed ED ROS GENERAL - Review of Systems Review Of Systems: Comprehensive ROS is negative, except as noted in HPI. ED EXAM, RENAL/ - Physical Exam Exam: See Below Exam Limited By: No Limitations General Appearance: Alert, Anxious, Obese Eye Exam: Bilateral Eye: EOMI Ears: Normal External Exam, Hearing Grossly Normal Nose: Normal Inspection Throat/Mouth: Normal Inspection Head: Atraumatic, Normocephalic Neck: Normal Inspection Respiratory/Chest: No Respiratory Distress, Lungs Clear, Normal Breath Sounds Cardiovascular: Normal Peripheral Pulses, Regular Rate, Rhythm GI/Abdominal: Normal Bowel Sounds, Soft, Non-Tender Neurological: Alert, Oriented, Normal Cognition Psychiatric: Anxious Skin Exam: Warm, Dry, Intact, Normal Color Course - Vital Signs Last Recorded V/S: Last Vital Signs Temp 96.8 F L 10/28/19 20:49 Pulse 92 10/28/19 20:49 Resp 20 10/28/19 20:49 BP 128/55 L 10/28/19 20:49 Pulse Ox 94 L 10/28/19 20:49 - Orders/Labs/Meds Labs: Laboratory Tests 10/28/19 10/28/19 10/28/19 Range/Units 20:42 21:30 21:30 WBC 10.9 H (5.0-10.0) 10^3/uL RBC 5.57 H (4.2-5.4) 10^6/uL Hgb 16.3 H (12.0-16.0) g/dL Hct 48.8 H (37.0-47.0) % MCV 87.6 (80-100) fL MCH 29.3 (27.0-34.0) pg MCHC 33.4 (33.0-35.0) g/dL Plt Count 283 (150-450) 10^3/uL Neut % (Auto) 56.8 (42.2-75.2) % Lymph % (Auto) 29.7 (20.5-50.1) % [place] % (Auto) 10.0 H (2-8) % Eos % (Auto) 2.9 (1.0-3.0) % Baso % (Auto) 0.6 (0.0-1.0) % Sodium 142 (136-145) mmol/L Potassium 3.9 (3.5-5.1) mmol/L Chloride 103 (98-107) mmol/L Carbon Dioxide 32 (21-32) mmol/L Anion Gap 10.9 (7-13) mEq/L BUN 16 (7-18) mg/dL Creatinine 1.18 H (0.55-1.02) mg/dL Est Cr Clr Drug Dosing 43.34 mL/min Estimated GFR (MDRD) 46 BUN/Creatinine Ratio 13.6 (No establ ref range) Glucose 113 H (74-99) mg/dL Calcium 9.0 (8.5-10.1) mg/dL Total Bilirubin 0.3 (0.2-1.0) mg/dL AST 22 (15-37) U/L ALT 37 (14-59) U/L Alkaline Phosphatase 130 H (46-116) U/L Total Protein 7.6 (6.4-8.2) g/dL Albumin 3.3 L (3.4-5.0) g/dL Globulin 4.3 Albumin/Globulin Ratio 0.77 Urine Color Yellow (YELLOW) Urine Appearance Clear (CLEAR) Urine pH 6.0 (5.0-9.0) Ur Specific [place] 1.025 (1.005-1.030) Urine Protein Negative (NEGATIVE) Urine Glucose (UA) Negative (NEGATIVE) Urine Ketones Negative (NEGATIVE) Urine Occult Blood Trace-intact H (NEGATIVE) Urine Nitrite Negative (NEGATIVE) Urine Bilirubin Negative (NEGATIVE) Urine Urobilinogen 0.2 (0.2-1.0) mg/dL Ur Leukocyte Esterase Negative (NEGATIVE) Urine RBC 5-10 H /HPF Urine WBC 0-5 (0-5/HPF) /HPF Ur Epithelial Cells Few (NOT SEEN) /HPF Amorphous Sediment Occasional (NOT SEEN) /HPF Urine Bacteria Occasional (0-FEW/HPF) /HPF Urine Mucus Rare (NOT SEEN) /LPF Departure - Departure Time of Disposition: 22:17 Disposition: Home, Self-Care 01 Condition: Good Clinical Impression: Urinary frequency, Tobacco dependency Hematuria Qualifiers: Hematuria type: unspecified type Qualified Code(s): R31.9 - Hematuria, unspecified - Discharge Information *PRESCRIPTION DRUG MONITORING PROGRAM REVIEWED*: No *COPY OF PRESCRIPTION DRUG MONITORING REPORT IN PATIENT DARVIN: No Instructions: Urinary Frequency, Adult Forms: ED Department Discharge Additional Instructions: increase fluids, fruits fiber in diet follow up if symptoms worsen Sepsis Event Note - Evaluation Sepsis Screening Result: No Definite Risk - Focused Exam Vital Signs: Vital Signs Temp Pulse Resp BP Pulse Ox 10/28/19 20:49 96.8 F L 92 20 128/55 L 94 L Date Exam was Performed: 10/28/19 Time Exam was Performed: 22:17
[2019-10-28 21:54] LABS: ANION GAP 10.9 mEq/L (7-13)
== END 2019-10-28 22:25 | disposition home or self-care (01) ==
LOC: DL.ED 20:34
DX: R35.0 Frequency of micturition (principal); R31.9 Hematuria, unspecified; F17.210 Nicotine dependence, cigarettes, uncomplicated; I25.2 Old myocardial infarction; I12.9 Hypertensive chronic kidney disease with stage 1 through stage 4 chronic kidney disease, or unspecified chronic kidney disease; N18.3 Chronic kidney disease, stage 3 (moderate); J44.9 Chronic obstructive pulmonary disease, unspecified; E11.22 Type 2 diabetes mellitus with diabetic chronic kidney disease; E78.5 Hyperlipidemia, unspecified; F41.9 Anxiety disorder, unspecified; F32.9 Major depressive disorder, single episode, unspecified; E66.9 Obesity, unspecified; Z68.38 Body mass index [BMI] 38.0-38.9, adult; Z88.5 Allergy status to narcotic agent; Z88.8 Allergy status to other drugs, medicaments and biological substances; Z91.030 Bee allergy status
CPT/HCPCS: 36415; 80053; 81001; 85025; 99283

== ENCOUNTER 2020-05-23 20:06 | Emergency (ER) | payer BC, OTHER ==
[2020-05-23 20:24] VITALS: BP 148/78; PULSE 110
--- NOTE | 2020-05-23 20:38 | EDM.PDOC ---
ED HPI GENERAL MEDICAL PROBLEM - General Stated Complaint: RIGHT FOOT, DROPPED A 22LBS TURKEY ON IT. Time Seen by Provider: 05/23/20 20:30 Source of Information: Reports: Patient History Limitations: Reports: No Limitations - History of Present Illness INITIAL COMMENTS - FREE TEXT/NARRATIVE: This 64 yo female patient reports to the ED due to dropping a 22 pound frozen turkey on her foot about 30 minutes prior to coming to the ED. The patient reports she did attempt to rest, ice and elevate prior to coming to the ED. Onset: Today Duration: Constant Location: Reports: Lower Extremity, Right Quality: Reports: Ache, Dull Severity: Moderate Improves with: Reports: None Worsens with: Reports: None Context: Reports: Other Associated Symptoms: Reports: No Other Symptoms Right Feet Pain Score (Numeric/FACES): 9 - Related Data Allergies Allergy/AdvReac Type Severity Reaction Status Date / Time codeine Allergy Rash Verified 10/28/19 20:48 gabapentin Allergy Swollen Verified 10/28/19 20:48 Tongue morphine Allergy Headache Verified 10/28/19 20:48 nystatin Allergy Rash Verified 10/28/19 20:48 venom-honey bee Allergy Cannot Verified 10/28/19 20:48 [bee venom (honey bee)] Remember Home Meds: Home Meds Aspirin [Aspirin EC] 1 tab PO DAILY 12/30/13 [History] Triamterene/Hydrochlorothiazid [Triamterene-HCTZ 37.5-25 MG] 2 tab PO ASDIRECTED 12/30/13 [History] Venlafaxine HCl [Venlafaxine HCl ER] 75 mg PO BID 12/30/13 [History] lisinopriL [Prinivil] 5 mg PO DAILY 12/30/13 [History] Pantoprazole [ProTONIX] 40 mg PO BID 03/12/16 [History] Magnesium Oxide [Magnesium] 400 mg PO DAILY 02/01/17 [History] Calcium Carbonate/Vitamin D3 [Calcium 250+D] 1 tab PO DAILY 05/17/18 [History] Cholecalciferol (Vitamin D3) [Vitamin D] 1,000 unit PO DAILY 10/20/19 [History] Metoprolol Succinate [Toprol XL 50mg] 50 mg PO DAILY 10/20/19 [History] Ondansetron [Zofran] 8 mg PO DAILY PRN 10/20/19 [History] Tiotropium [place] [Spiriva Respimat] 2.5 mcg INH DAILY 10/20/19 [History] Vitamin B Complex 1,000 mcg PO DAILY 10/20/19 [History] atorvaSTATin Calcium [Lipitor] 20 mg PO DAILY 10/20/19 [History] Past Medical History HEENT History: Reports: Other (See Below) Other HEENT History: Hx of eye surgery Cardiovascular History: Reports: Hypertension Respiratory History: Reports: COPD Gastrointestinal History: Reports: GERD Other Gastrointestinal History: fatty liver Genitourinary History: Reports: Chronic Renal Insuffiency, Other (See Below) Other Genitourinary History: Stage III CKD 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 Other WE[employer]ONS OFFICER History: Hysterectomy Musculoskeletal History: Reports: Fibromyalgia Other Musculoskeletal History: Carpal tunnel surgery Neurological History: Reports: Other (See Below) Other Neuro History: Chronic pain, occipital headache, and opioid dependence Psychiatric History: Reports: Anxiety, Depression, Other (See Below) Other Psychiatric History: Opioid dependence Endocrine/Metabolic History: Reports: Diabetes, Type II, Obesity/BMI 30+ Other Endocrine/Metabolic History: Hyperlipidemia Hematologic History: Reports: B12 Deficiency Immunologic History: Reports: None Oncologic (Cancer) History: Reports: Breast Dermatologic History: Reports: None - Infectious Disease History Infectious Disease History: Reports: None - Past Surgical History Head Surgeries/Procedures: Reports: None HEENT Surgical History: Reports: None, Adenoidectomy, Tonsillectomy Cardiovascular Surgical History: Reports: None Respiratory Surgical History: Reports: None GI Surgical History: Reports: Appendectomy, Cholecystectomy Other GI Surgeries/Procedures: liver bipopsy Female Surgical History: Reports: Hysterectomy Endocrine Surgical History: Reports: None Musculoskeletal Surgical History: Reports: Carpal Tunnel Oncologic Surgical History: Reports: Biopsy of Breast Dermatological Surgical History: Reports: None Social & Family History - Family History Family Medical History: No Pertinent Family History Cardiac: Reports: CAD, High Cholesterol, Hypertension, [place] Respiratory: Reports: Other (See Below) Other Respiratory Family Hisory: Lung cancer GI: Reports: Cholelithiasis Other Family History: Father had kidney disease requiring dialysis OBGYN: Reports: Other (See Below) Other OBGYN Family History: Sister had breast cancer Endocrine/Metabolic: Reports: Other (See Below) Other Endocrine/Metabolic Family History: Mother had DM Oncologic: Reports: Breast - Tobacco Use Tobacco Use Status *Q: Current Every Day Tobacco User Years of Tobacco use: 30 Packs/Tins Daily: 1 - Caffeine Use Caffeine Use: Reports: Coffee Other Caffeine Use: Soda - Recreational Drug Use Recreational Drug Use: No - Living Situation & Occupation Living situation: Reports: with Family, Single Occupation: Employed Review of Systems - Review of Systems Review Of Systems: Comprehensive ROS is negative, except as noted in HPI. ED EXAM, GENERAL - Physical Exam Exam: See Below Exam Limited By: No Limitations General Appearance: Alert, WD/WN, Mild Distress Eye Exam: Bilateral Eye: EOMI, Normal Inspection Ears: Normal External Exam, Hearing Grossly Normal Nose: Normal Inspection, No Blood Throat/Mouth: Normal Lips, Normal Voice, No Airway Compromise Head: Atraumatic, Normocephalic Neck: Full Range of Motion Respiratory/Chest: No Respiratory Distress, Lungs Clear, Normal Breath Sounds Cardiovascular: Normal Peripheral Pulses, Regular Rate, Rhythm (Female) Exam: Deferred Rectal (Female) Exam: Deferred Extremities: Leg Pain (right foot pain/tenderness) Neurological: Alert, Oriented, CN II-XII Intact, Normal Cognition, Normal Gait, Normal Reflexes, No Motor/Sensory Deficits Psychiatric: Normal Affect, Normal Mood Skin Exam: Warm, Dry, Intact, Normal Color, No Rash Lymphatic: No Adenopathy Course - Vital Signs Last Recorded V/S: Last Vital Signs Temp 36.4 C 05/23/20 20:21 Pulse 110 H 05/23/20 20:21 Resp 18 05/23/20 20:21 BP 148/78 H 05/23/20 20:21 Pulse Ox 100 05/23/20 20:21 - Orders/Labs/Meds Orders: Active Orders 24 hr Category Date Time Status Foot Comp Min 3V Rt [CR] Urgent Exams 05/23/20 20:16 Taken Departure - Departure Time of Disposition: 20:37 Disposition: Home, Self-Care 01 Condition: Fair Clinical Impression: Contusion of right foot Qualifiers: Encounter type: initial encounter Qualified Code(s): S90.31XA - Contusion of right foot, initial encounter - Discharge Information *PRESCRIPTION DRUG MONITORING PROGRAM REVIEWED*: Not Applicable *COPY OF PRESCRIPTION DRUG MONITORING REPORT IN PATIENT DARVIN: Not Applicable Instructions: Foot Contusion, [id number] Forms: ED Department Discharge Care Plan Goals: The patient was advised of the examination and x-ray results during the visit. The patient was encouraged to rest, ice and elevate the extremity. The patient was advised to take Tylenol as directed for temporary symptom relief. If the patient has any additional symptoms or concerns, the patient should either return to the emergency department or follow-up with her primary care facility. Sepsis Event Note (ED) - Evaluation Sepsis Screening Result: No Definite Risk - Focused Exam Vital Signs: Vital Signs Temp Pulse Resp BP Pulse Ox 05/23/20 20:21 36.4 C 110 H 18 148/78 H 100 - My Orders Last 24 Hours: My Active Orders 05/23/20 20:16 Foot Comp Min 3V Rt [CR] Urgent - Assessment/Plan Last 24 Hours: My Active Orders 05/23/20 20:16 Foot Comp Min 3V Rt [CR] Urgent
--- NOTE | 2020-05-23 20:41 | CR ---
PROCEDURE INFORMATION: Exam: XR Right Foot Complete Exam date and time: 05/23/2020 8:25 PM Age: 64 years old Clinical indication: Other: Dropped turkey on foot, pain TECHNIQUE: Imaging protocol: XR Right foot. Views: 3 or more views. COMPARISON: No relevant prior studies available. FINDINGS: Bones/joints: There is normal osseous alignment. There are no fractures. No callus formation is seen along the metatarsals or elsewhere in the foot. No osteosclerotic abnormalities. No lytic areas of osseous destruction. No periarticular osteophyte formation or erosions. There is a plantar calcaneal spur. Soft tissues: Calcification of inserting Achilles tendon fibers consistent with calcific tendinitis. IMPRESSION: Negative foot radiography. No fracture.
== END 2020-05-23 20:56 | disposition home or self-care (01) ==
LOC: DL.ED 20:06
DX: S90.31XA Contusion of right foot, initial encounter (principal); J44.9 Chronic obstructive pulmonary disease, unspecified; K21.9 Gastro-esophageal reflux disease without esophagitis; I12.9 Hypertensive chronic kidney disease with stage 1 through stage 4 chronic kidney disease, or unspecified chronic kidney disease; E11.22 Type 2 diabetes mellitus with diabetic chronic kidney disease; N18.30 Chronic kidney disease, stage 3 unspecified; E66.9 Obesity, unspecified; F41.9 Anxiety disorder, unspecified; F32.9 Major depressive disorder, single episode, unspecified; F17.210 Nicotine dependence, cigarettes, uncomplicated; Z88.5 Allergy status to narcotic agent; Z91.030 Bee allergy status; Z88.8 Allergy status to other drugs, medicaments and biological substances; Z79.82 Long term (current) use of aspirin; Z79.899 Other long term (current) drug therapy; Z90.49 Acquired absence of other specified parts of digestive tract; Z90.710 Acquired absence of both cervix and uterus; W20.8XXA Other cause of strike by thrown, projected or falling object, initial encounter
CPT/HCPCS: 73630-RT; 99282; 99283

== ENCOUNTER 2020-08-18 05:39 | Day surgery (SDC) | payer BC, OTHER ==
[~2020-08-18 05:39] MED LIST changes: -Midazolam 1 MG/ML 2 ML SDV IV ONE; -Midazolam 1 MG/ML 2 ML SDV ONE; -fentaNYL 100 MCG/2 ML SDV IV ONE; -fentaNYL 100 MCG/2 ML SDV ONE
[2020-08-18] MEDS ORDERED: fentaNYL 100 MCG/2 ML SDV IV ONE ×4 (05:40→06:41)
[2020-08-18] MEDS ORDERED: Midazolam 1 MG/ML 2 ML SDV IV ONE ×7 (05:40→06:39)
[2020-08-18] MEDS ORDERED: fentaNYL 100 MCG/2 ML SDV ONE (05:58)
[2020-08-18] MEDS ORDERED: Midazolam 1 MG/ML 2 ML SDV ONE (05:58)
[2020-08-18 09:47] VITALS: BP 166/72; PULSE 88
--- NOTE | 2020-08-18 09:59 | OR ---
DATE: 08/18/2020 PROCEDURES: Total colonoscopy and multiple pinch biopsies. INSTRUMENT USED: PCF-H190DL Olympus video colonoscope. PREMEDICATIONS: Fentanyl 125 mcg intravenous, Versed 4 mg intravenous. The procedure was done under pulse oximetry, BP recording, and library monitor. INDICATION: The patient with chronic diarrhea, unexplained, and not responsive to medical measures. Colonoscopic examination is done for detection of any polypoid lesions and removal, biopsies to be obtained for any evidence of microscopic colitis, endoscopic hemostasis therapy if needed. DESCRIPTION OF PROCEDURE: Initial rectal exam was unremarkable. Rigid anoscopy was normal. The colonoscope was passed with ease up to the ileocecal area. Photographs were taken of the normal-appearing cecum identified by landmarks of appendiceal orifice and thin-lipped ileocecal folds that prevented further advancement of the instrument to visualize distal ileum. No bleeding was noted from any of the visualized areas at the commencement of the examination. The bowel preparation was inadequate. Large amount of solid and liquid fecal material noted scattered in the colon, [place] scale 1 in all the areas, total #3. No stricture. No vascular ectasia. No large isolated ulcerations seen. No evidence of diffuse inflammatory bowel disease in the form of friability, contact bleeding, or ulcerations. No polyp or tumor mass identified. Probing the proximal sides of folds and flexures using adequate distention and clearing up the stool material, withdrawal of the scope was made. Multiple pinch biopsies were taken from the normal-appearing mucosa of the mid transverse colon, mid descending colon, rectosigmoid, and sent for any histopathologic evidence of microscopic colitis. No bleeding was noted from any of the visualized areas at the completion of examination. IMPRESSION: Normal study. The patient tolerated the procedure well. MODL /[id number]
--- NOTE | 2020-08-18 10:14 | LETTER ---
08/18/2020 RE: KEVEN IBARRA : 1955 Yaritza Guerra NP [facility] [address] [place] [address] Dear Ms. Guerra: Ms. Keven Ibarra had colonoscopic examination done this morning and she tolerated the procedure well. I herewith send a copy of the endoscopy note and photographs for your review. Thank you. Sincerely, [facility] /[id number]
== END 2020-08-18 09:00 | disposition home or self-care (01) ==
LOC: DL.ENDO 05:39
PROVIDERS: ATTEND Internal Medicine Gastroenterology
DX: K52.9 Noninfective gastroenteritis and colitis, unspecified (principal); I12.9 Hypertensive chronic kidney disease with stage 1 through stage 4 chronic kidney disease, or unspecified chronic kidney disease; N18.9 Chronic kidney disease, unspecified; E78.5 Hyperlipidemia, unspecified; J44.9 Chronic obstructive pulmonary disease, unspecified; E66.09 Other obesity due to excess calories; Z68.37 Body mass index [BMI] 37.0-37.9, adult; Z88.6 Allergy status to analgesic agent; Z88.8 Allergy status to other drugs, medicaments and biological substances; Z86.010 Personal history of colon polyps; Z98.890 Other specified postprocedural states
CPT/HCPCS: J2250; J3010; J7042

== ENCOUNTER 2020-09-12 17:00 | Emergency (ER) | payer BC, OTHER ==
[2020-09-12 17:18] VITALS: BP 171/74; PULSE 109
[2020-09-12] MEDS ORDERED: Sodium Chloride 0.9% 1,000 ML IV ONE (17:39)
[2020-09-12] MEDS ORDERED: Ondansetron 4 MG/2 ML SDV IVPUSH ONE (17:39)
--- NOTE | 2020-09-12 17:47 | EDM.PDOC ---
ED HPI GENERAL MEDICAL PROBLEM - General Chief Complaint: Flank Pain Stated Complaint: LEFT KIDNEY PAIN Time Seen by Provider: 09/12/20 17:30 Source of Information: Reports: Patient History Limitations: Reports: No Limitations - History of Present Illness INITIAL COMMENTS - FREE TEXT/NARRATIVE: This 65 yo female patient reports to the ED with increased left flank pain since yesterday. The patient reports she started to have pain yesterday, but her pain has increased throughout today. The patient reports she does have a history of kidney stones, but has not had any additional symptoms lately. Onset: Sudden Duration: Day(s): (2) Location: Reports: Back (left flank) Left Flank Pain Score (Numeric/FACES): 5 - Related Data Allergies Allergy/AdvReac Type Severity Reaction Status Date / Time codeine Allergy Rash Verified 09/12/20 17:18 dicyclomine Allergy Rash Verified 09/12/20 17:18 gabapentin Allergy Swollen Verified 09/12/20 17:18 Tongue Iodinated Contrast Media Allergy Anaphylactic Verified 09/12/20 17:18 Shock methadone Allergy Nausea and Verified 09/12/20 17:18 Vomiting morphine Allergy Headache Verified 09/12/20 17:18 nortriptyline Allergy Rash Verified 09/12/20 17:18 nystatin Allergy Rash Verified 09/12/20 17:18 sucralfate Allergy Hives Verified 09/12/20 17:18 venom-honey bee Allergy Cannot Verified 09/12/20 17:18 [bee venom (honey bee)] Remember Home Meds: Home Meds Triamterene/Hydrochlorothiazid [Triamterene-HCTZ 37.5-25 MG] 2 tab PO ASDIRECTED 12/30/13 [History] lisinopriL [Prinivil] 5 mg PO DAILY 12/30/13 [History] Pantoprazole [ProTONIX] 40 mg PO BID 03/12/16 [History] Magnesium Oxide [Magnesium] 400 mg PO DAILY 02/01/17 [History] Calcium Carbonate/Vitamin D3 [Calcium 250+D] 1 tab PO DAILY 05/17/18 [History] Cholecalciferol (Vitamin D3) [Vitamin D] 1,000 unit PO DAILY 10/20/19 [History] Ondansetron [Zofran] 8 mg PO DAILY PRN 10/20/19 [History] Tiotropium [place] [Spiriva Respimat] 2.5 mcg INH DAILY 10/20/19 [History] Vitamin B Complex 1,000 mcg PO DAILY 10/20/19 [History] atorvaSTATin Calcium [Lipitor] 20 mg PO DAILY 10/20/19 [History] Baclofen 10 mg PO DAILY 08/16/20 [History] PARoxetine [Paxil] 20 mg PO DAILY 08/16/20 [History] Albuterol/Ipratropium [DuoNeb 3.0-0.5 MG/3 ML] 1 vial INH ASDIRECTED PRN 08/17/20 [History] Triamcinolone Acetonide [Kenalog 0.1% Crm] 1 applic TOP ASDIRECTED 08/17/20 [H istory] Past Medical History HEENT History: Reports: Other (See Below) Other HEENT History: Hx of eye surgery Cardiovascular History: Reports: Heart Murmur, Hypertension Respiratory History: Reports: COPD, Sleep Apnea Gastrointestinal History: Reports: Chronic Constipation, GERD, Other (See Below) Other Gastrointestinal History: fatty liver Genitourinary History: Reports: Chronic Renal Insuffiency, Other (See Below) Other Genitourinary History: Stage III CKD 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 EDEMA OF EXTREMITIES Neurological History: Reports: Headaches, Chronic, Other (See Below) Other Neuro History: Chronic pain, occipital headache, and opioid dependence Psychiatric History: Reports: Anxiety, Depression, Other (See Below) Other Psychiatric History: Opioid dependence Endocrine/Metabolic History: Reports: Diabetes, Type II, Hypomagnesemia, Obesity/BMI 30+ Other Endocrine/Metabolic History: Hyperlipidemia Hematologic History: Reports: Anemia, B12 Deficiency Immunologic History: Reports: None Oncologic (Cancer) History: Reports: Breast Dermatologic History: Reports: None - Infectious Disease History Infectious Disease History: Reports: None - Past Surgical History Head Surgeries/Procedures: Reports: None HEENT Surgical History: Reports: Adenoidectomy, Tonsillectomy Other HEENT Surgeries/Procedures: eye lid surg Cardiovascular Surgical History: Reports: None Respiratory Surgical History: Reports: None GI Surgical History: Reports: Appendectomy, Cholecystectomy, Colonoscopy, EGD, Esophageal Dilatation Other GI Surgeries/Procedures: liver bipopsy Female Surgical History: Reports: Hysterectomy Endocrine Surgical History: Reports: None Neurological Surgical History: Reports: None Musculoskeletal Surgical History: Reports: Carpal Tunnel, Other (See Below) Other Musculoskeletal Surgeries/Procedures:: BURSA ELBOW SURGERY Oncologic Surgical History: Reports: Biopsy of Breast Dermatological Surgical History: Reports: None Social & Family History - Family History Family Medical History: No Pertinent Family History Cardiac: Reports: CAD, High Cholesterol, Hypertension, [place] Respiratory: Reports: Other (See Below) Other Respiratory Family Hisory: Lung cancer GI: Reports: Cholelithiasis Other Family History: Father had kidney disease requiring dialysis OBGYN: Reports: Other (See Below) Other OBGYN Family History: Sister had breast cancer Endocrine/Metabolic: Reports: Other (See Below) Other Endocrine/Metabolic Family History: Mother had DM Oncologic: Reports: Breast - Tobacco Use Tobacco Use Status *Q: Never Tobacco User - Caffeine Use Caffeine Use: Reports: None Other Caffeine Use: Soda Caffeine Use Comment: 3 cups coffee daily - Recreational Drug Use Recreational Drug Use: No - Living Situation & Occupation Living situation: Reports: with Family, Single Occupation: Employed ED ROS GENERAL - Review of Systems Review Of Systems: Comprehensive ROS is negative, except as noted in HPI. ED EXAM, RENAL/ - Physical Exam Exam: See Below Exam Limited By: No Limitations General Appearance: Alert, WD/WN, No Apparent Distress Eye Exam: Bilateral Eye: EOMI, Normal Inspection, PERRL Ears: Normal External Exam, Normal Canal, Hearing Grossly Normal, Normal TMs Nose: Normal Inspection, Normal Mucosa, No Blood Throat/Mouth: Normal Inspection, Normal Lips, Normal Teeth, Normal Gums, Normal Oropharynx, Normal Voice, No Airway Compromise Head: Atraumatic, Normocephalic Neck: Normal Inspection, Supple, Non-Tender, Full Range of Motion Respiratory/Chest: No Respiratory Distress, Lungs Clear, Normal Breath Sounds, No Accessory Muscle Use, Chest Non-Tender Cardiovascular: Normal Peripheral Pulses, Regular Rate, Rhythm, No Edema, No Gallop, No JVD, No Murmur, No Rub GI/Abdominal: Normal Bowel Sounds, Soft, Non-Tender, No Organomegaly, No Distention, No Abnormal Bruit, No Mass (Female) Exam: Deferred Rectal (Female) Exam: Deferred Back Exam: CVA Tenderness (L) Extremities: Normal Inspection, Normal Range of Motion, Non-Tender, Normal Capillary Refill, No Pedal Edema Neurological: Alert, Oriented, CN II-XII Intact, Normal Cognition, Normal Gait, Normal Reflexes, No Motor/Sensory Deficits Psychiatric: Normal Affect, Normal Mood Skin Exam: Warm, Dry, Intact, Normal Color, No Rash Lymphatic: No Adenopathy Course - Vital Signs Last Recorded V/S: Last Vital Signs Temp 36.3 C 09/12/20 17:15 Pulse 109 H 09/12/20 17:15 Resp 18 09/12/20 17:15 BP 171/74 H 09/12/20 17:15 Pulse Ox 95 09/12/20 17:15 - Orders/Labs/Meds Labs: Laboratory Tests 09/12/20 09/12/20 09/12/20 Range/Units 17:05 17:37 17:37 WBC 12.2 H (5.0-10.0) 10^3/uL RBC 5.72 H (4.2-5.4) 10^6/uL Hgb 16.4 H (12.0-16.0) g/dL Hct 48.8 H (37.0-47.0) % MCV 85.3 (80-100) fL MCH 28.7 (27.0-34.0) pg MCHC 33.6 (33.0-35.0) g/dL Plt Count 316 (150-450) 10^3/uL Neut % (Auto) 64.1 (42.2-75.2) % Lymph % (Auto) 24.7 (20.5-50.1) % [place] % (Auto) 7.0 (2-8) % Eos % (Auto) 3.8 H (1.0-3.0) % Baso % (Auto) 0.4 (0.0-1.0) % Sodium 139 (136-145) mmol/L Potassium 3.7 (3.5-5.1) mmol/L Chloride 99 (98-107) mmol/L Carbon Dioxide 29 (21-32) mmol/L Anion Gap 14.7 H (7-13) mEq/L BUN 22 H (7-18) mg/dL Creatinine 1.13 H (0.55-1.02) mg/dL Est Cr Clr Drug Dosing 44.66 mL/min Estimated GFR (MDRD) 48 BUN/Creatinine Ratio 19.5 (No establ ref range) Glucose 166 H (70-99) mg/dL Calcium 9.1 (8.5-10.1) mg/dL Total Bilirubin 0.3 (0.2-1.0) mg/dL AST 22 (15-37) U/L ALT 41 (14-59) U/L Alkaline Phosphatase 130 H (46-116) U/L Total Protein 7.9 (6.4-8.2) g/dL Albumin 3.3 L (3.4-5.0) g/dL Globulin 4.6 Albumin/Globulin Ratio 0.72 Urine Color Yellow (YELLOW) Urine Appearance Clear (CLEAR) Urine pH 7.5 (5.0-9.0) Ur Specific [place] 1.015 (1.005-1.030) Urine Protein Negative (NEGATIVE) Urine Glucose (UA) Negative (NEGATIVE) Urine Ketones Negative (NEGATIVE) Urine Occult Blood Small H (NEGATIVE) Urine Nitrite Negative (NEGATIVE) Urine Bilirubin Negative (NEGATIVE) Urine Urobilinogen 0.2 (0.2-1.0) mg/dL Ur Leukocyte Esterase Negative (NEGATIVE) Urine RBC 5-10 H /HPF Urine WBC 0-5 (0-5/HPF) /HPF Ur Epithelial Cells Few (NOT SEEN) /HPF Amorphous Sediment Few (NOT SEEN) /HPF Urine Bacteria Rare (0-FEW/HPF) /HPF Meds: Medications Discontinued Medications Generic Name Dose Route Start Last Admin Trade Name Michaelq PRN Reason Stop Dose Admin Sodium Chloride 1,000 mls @ 999 mls/hr 09/12/20 17:39 09/12/20 17:56 Normal Saline IV 09/12/20 18:39 999 mls/hr .BOLUS ONE Administration Ketorolac Tromethamine 30 mg 09/12/20 18:30 09/12/20 19:04 Ketorolac 30 Mg/Ml Sdv IVPUSH 09/12/20 18:31 30 mg ONETIME ONE Administration Methylprednisolone Sodium Succinate 125 mg 09/12/20 19:23 Methylprednisolone Sodium Succinate 125 Mg/2 Ml Sdv IVPUSH 09/12/20 19:24 ONETIME ONE Ondansetron HCl 4 mg 09/12/20 17:39 09/12/20 17:56 Ondansetron 4 Mg/2 Ml Sdv IVPUSH 09/12/20 17:40 4 mg ONETIME ONE Administration Departure - Departure Time of Disposition: 19:25 Disposition: Home, Self-Care 01 Condition: Fair Clinical Impression: Low back strain Qualifiers: Encounter type: initial encounter Qualified Code(s): S39.012A - Strain of muscle, fascia and tendon of lower back, initial encounter - Discharge Information *PRESCRIPTION DRUG MONITORING PROGRAM REVIEWED*: Not Applicable *COPY OF PRESCRIPTION DRUG MONITORING REPORT IN PATIENT DARVIN: Not Applicable Instructions: Back Injury Prevention, [id number] Forms: ED Department Discharge Care Plan Goals: The patient was advised of the examination, lab and CT results during the visit. The patient was given IV fluids, IV Toradol and IV Solumedrol while in the ED. The patient was discharged with a script for Prednisone (20 mg) #10 to take 2 by mouth daily for 5 days and Flexeril (10 mg) #20 to take 1 by mouth at bedtime. The patient may take over the counter medications for temporary symptom relief. The patient was encouraged to use heat or ice. If the patient has any additional symptoms or concerns, the patient should either return to the emergency department or visit her primary care facility. Sepsis Event Note (ED) - Evaluation Sepsis Screening Result: No Definite Risk - Focused Exam Vital Signs: Vital Signs Temp Pulse Resp BP Pulse Ox 09/12/20 17:15 36.3 C 109 H 18 171/74 H 95
[2020-09-12 18:01] LABS: ANION GAP 14.7 mEq/L (7-13)
[2020-09-12] MEDS ORDERED: Ketorolac 30 MG/ML SDV IVPUSH ONE (18:30)
--- NOTE | 2020-09-12 19:13 | CT ---
PROCEDURE INFORMATION: Exam: CT Abdomen And Pelvis Without Contrast Exam date and time: 09/12/2020 6:45 PM Age: 65 years old Clinical indication: Pain; Other: Flank; Prior surgery; Surgery date: 6+ months; Surgery type: Appendectomy, cholecystectomy, hysterectomy; Additional info: Left flank pain TECHNIQUE: Imaging protocol: Computed tomography of the abdomen and pelvis without contrast. Radiation optimization: All CT scans at this facility use at least one of these dose optimization techniques: automated exposure control; mA and/or kV adjustment per patient size (includes targeted exams where dose is matched to clinical indication); or iterative reconstruction. COMPARISON: CT Abdomen Pelvis w Cont 10/26/2019 10:39 AM FINDINGS: Lungs: The visualized lung bases are clear. Liver: There is a diffuse decrease in hepatic parenchymal density, consistent with severe hepatic steatosis. The liver is otherwise unremarkable. Gallbladder and bile ducts: Status post cholecystectomy. Pancreas: The pancreas is normal. Spleen: The spleen is normal. Adrenal glands: The adrenal glands are normal. Kidneys and ureters: Multiple left renal cysts less well seen on the current study than on the prior contrast enhanced exam. No additional imaging is recommended. There is no evidence of urolithiasis. There is no evidence of hydronephrosis. The ureters are normal. Stomach and bowel: This postoperative change involving the anterior gastric wall. The stomach is decompressed. Gastric mucosal abnormalities are not ruled in or ruled out. Non-specific/nonobstructive intestinal gas pattern. Appendix: The appendix is not specifically identified. There is no evidence of fluid or inflammatory stranding at the base of the cecum. Intraperitoneal space: No free intraperitoneal air. No free intraperitoneal fluid. Vasculature: There is severe diffuse calcific atherosclerotic plaque. There is no aortic aneurysm. Lymph nodes: There is no adenopathy. Urinary bladder: The bladder is normal. Reproductive: There has been a hysterectomy. Bones/joints: There is moderate disc space narrowing and endplate sclerosis and osteophyte formation identified throughout the lumbar segment. Moderate diffuse facet disease throughout. No acute bony findings are identified. Soft tissues: Is an anterior abdominal wall hernia in the midline, the defect the wall measures 5 cm. Multiple small bowel loops enter the hernia. The hernia appears minimally larger. There is no soft tissue abnormality seen. IMPRESSION: 1. No hydronephrosis. No urolithiasis. 2. The stomach is entirely decompressed. Gastric mucosal abnormalities are not ruled in or ruled out. Postoperative anterior gastric wall. 3. Midline anterior abdominal wall hernia at the umbilicus appears slightly larger, small bowel enters the hernia. 4. Non-specific/nonobstructive intestinal gas pattern. 5. Hepatic steatosis. COMMENTS: Consistent with the [employer]'s Incidental Findings Committee white paper (J Am Devang Radiol 2018): Any incidental renal lesion less than 1 cm or classified as too small to characterize, or any incidental cystic renal lesion characterized as simple-appearing, is likely benign. No follow-up imaging is recommended for these lesions per consensus recommendations based on imaging criteria.
[2020-09-12] MEDS ORDERED: methylPREDNISolone Sodium Succinate 125 MG/2 ML SDV IVPUSH ONE (19:23)
== END 2020-09-12 19:49 | disposition home or self-care (01) ==
LOC: DL.ED 17:00
DX: S39.012A Strain of muscle, fascia and tendon of lower back, initial encounter (principal); I10 Essential (primary) hypertension; J44.9 Chronic obstructive pulmonary disease, unspecified; I12.9 Hypertensive chronic kidney disease with stage 1 through stage 4 chronic kidney disease, or unspecified chronic kidney disease; N18.30 Chronic kidney disease, stage 3 unspecified; E11.22 Type 2 diabetes mellitus with diabetic chronic kidney disease; E83.42 Hypomagnesemia; K21.9 Gastro-esophageal reflux disease without esophagitis; E78.5 Hyperlipidemia, unspecified; E66.9 Obesity, unspecified; Z68.37 Body mass index [BMI] 37.0-37.9, adult; Z88.5 Allergy status to narcotic agent; Z88.8 Allergy status to other drugs, medicaments and biological substances; Z91.041 Radiographic dye allergy status; Z91.030 Bee allergy status; X58.XXXA Exposure to other specified factors, initial encounter
CPT/HCPCS: 36415; 74176; 80053; 81001; 85025; 96374; 96375; 99283; 99284-25; J1885; J2405; J2930; J7030

== ENCOUNTER 2021-01-30 19:03 | Emergency (ER) | payer MEDICARE, OTHER ==
[~2021-01-30 19:03] MED LIST changes: -Dextrose 5%-0.45% NaCl 1,000 ML IV SCH; +Famotidine 20 MG/2 ML SDV IVPUSH ONE; +Sodium Chloride 0.9% 1,000 ML IV ONE; -Sodium Chloride 0.9% 10 ML Syringe FLUSH PRN; +diphenhydrAMINE 50 MG/ML SDV IVPUSH ONE; +methylPREDNISolone Sodium Succinate 125 MG/2 ML SDV IVPUSH ONE
[2021-01-30] MEDS ORDERED: diphenhydrAMINE 25 MG Tab PO ONE (19:04)
--- NOTE | 2021-01-30 19:13 | EDM.PDOC ---
ED HPI GENERAL MEDICAL PROBLEM - General Chief Complaint: Bite:Animal, Insect Stated Complaint: AMBULANCE Time Seen by Provider: 01/30/21 19:08 Source of Information: Reports: Patient, RN History Limitations: Reports: No Limitations - History of Present Illness INITIAL COMMENTS - FREE TEXT/NARRATIVE: ED via [facility] with report of bee sting. Prior known allergy. Epi pen but expir ed. Epi gave SQ epi x one dose for c/o feeling like tongue swelling. No difficulty breathing. Sting to lower right posterior calf, applied mud "to relieve stinging burning sensation Right Posterior Ankle Pain Score (Numeric/FACES): 10 - Related Data Allergies Allergy/AdvReac Type Severity Reaction Status Date / Time codeine Allergy Rash Verified 09/12/20 17:18 dicyclomine Allergy Rash Verified 09/12/20 17:18 gabapentin Allergy Swollen Verified 09/12/20 17:18 Tongue Iodinated Contrast Media Allergy Anaphylactic Verified 09/12/20 17:18 Shock methadone Allergy Nausea and Verified 09/12/20 17:18 Vomiting morphine Allergy Headache Verified 09/12/20 17:18 nortriptyline Allergy Rash Verified 09/12/20 17:18 nystatin Allergy Rash Verified 09/12/20 17:18 sucralfate Allergy Hives Verified 09/12/20 17:18 venom-honey bee Allergy Cannot Verified 09/12/20 17:18 [bee venom (honey bee)] Remember Home Meds: Home Meds Triamterene/Hydrochlorothiazid [Triamterene-HCTZ 37.5-25 MG] 2 tab PO ASDIRECTED 12/30/13 [History] lisinopriL [Prinivil] 5 mg PO DAILY 12/30/13 [History] Pantoprazole [ProTONIX] 40 mg PO BID 03/12/16 [History] Magnesium Oxide [Magnesium] 400 mg PO DAILY 02/01/17 [History] Calcium Carbonate/Vitamin D3 [Calcium 250+D] 1 tab PO DAILY 05/17/18 [History] Cholecalciferol (Vitamin D3) [Vitamin D] 1,000 unit PO DAILY 10/20/19 [History] Ondansetron [Zofran] 8 mg PO DAILY PRN 10/20/19 [History] Tiotropium [place] [Spiriva Respimat] 2.5 mcg INH DAILY 10/20/19 [History] Vitamin B Complex 1,000 mcg PO DAILY 10/20/19 [History] atorvaSTATin Calcium [Lipitor] 20 mg PO DAILY 10/20/19 [History] Baclofen 10 mg PO DAILY 08/16/20 [History] PARoxetine [Paxil] 20 mg PO DAILY 08/16/20 [History] Albuterol/Ipratropium [DuoNeb 3.0-0.5 MG/3 ML] 1 vial INH ASDIRECTED PRN 08/17/20 [History] Triamcinolone Acetonide [Kenalog 0.1% Crm] 1 applic TOP ASDIRECTED 08/17/20 [History] Past Medical History HEENT History: Reports: Other (See Below) Other HEENT History: Hx of eye surgery Cardiovascular History: Reports: Heart Murmur, Hypertension Respiratory History: Reports: COPD, Sleep Apnea Gastrointestinal History: Reports: Chronic Constipation, GERD, Other (See Below) Other Gastrointestinal History: fatty liver Genitourinary History: Reports: Chronic Renal Insuffiency, Other (See Below) Other Genitourinary History: Stage III CKD 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 EDEMA OF EXTREMITIES Neurological History: Reports: Headaches, Chronic, Other (See Below) Other Neuro History: Chronic pain, occipital headache, and opioid dependence Psychiatric History: Reports: Anxiety, Depression, Other (See Below) Other Psychiatric History: Opioid dependence Endocrine/Metabolic History: Reports: Diabetes, Type II, Hypomagnesemia, Obesity/BMI 30+ Other Endocrine/Metabolic History: Hyperlipidemia Hematologic History: Reports: Anemia, B12 Deficiency Immunologic History: Reports: None Oncologic (Cancer) History: Reports: Breast Dermatologic History: Reports: None - Infectious Disease History Infectious Disease History: Reports: None - Past Surgical History Head Surgeries/Procedures: Reports: None HEENT Surgical History: Reports: Adenoidectomy, Tonsillectomy Other HEENT Surgeries/Procedures: eye lid surg Cardiovascular Surgical History: Reports: None Respiratory Surgical History: Reports: None GI Surgical History: Reports: Appendectomy, Cholecystectomy, Colonoscopy, EGD, Esophageal Dilatation Other GI Surgeries/Procedures: liver bipopsy Female Surgical History: Reports: Hysterectomy Endocrine Surgical History: Reports: None Neurological Surgical History: Reports: None Musculoskeletal Surgical History: Reports: Carpal Tunnel, Other (See Below) Other Musculoskeletal Surgeries/Procedures:: BURSA ELBOW SURGERY Oncologic Surgical History: Reports: Biopsy of Breast Dermatological Surgical History: Reports: None Social & Family History - Family History Family Medical History: No Pertinent Family History Cardiac: Reports: CAD, High Cholesterol, Hypertension, [place] Respiratory: Reports: Other (See Below) Other Respiratory Family Hisory: Lung cancer GI: Reports: Cholelithiasis Other Family History: Father had kidney disease requiring dialysis OBGYN: Reports: Other (See Below) Other OBGYN Family History: Sister had breast cancer Endocrine/Metabolic: Reports: Other (See Below) Other Endocrine/Metabolic Family History: Mother had DM Oncologic: Reports: Breast - Caffeine Use Caffeine Use: Reports: None Other Caffeine Use: Soda Caffeine Use Comment: 3 cups coffee daily - Living Situation & Occupation Living situation: Reports: with Family, Single Occupation: Employed ED ROS GENERAL - Review of Systems Review Of Systems: Comprehensive ROS is negative, except as noted in HPI. ED EXAM, ANIMAL BITE - Physical Exam Exam: See Below Exam Limited By: No Limitations General Appearance: Alert, No Apparent Distress Eye Exam: Bilateral Eye: EOMI Ears: Normal External Exam, Hearing Grossly Normal Nose: Normal Inspection Throat/Mouth: Normal Inspection Head: Atraumatic, Normocephalic Neck: Normal Inspection Respiratory/Chest: No Respiratory Distress, Lungs Clear, Normal Breath Sounds Cardiovascular: Normal Peripheral Pulses, Regular Rate, Rhythm, No Edema GI/Abdominal: Normal Bowel Sounds, Soft Extremities: Normal Inspection Neurological: Alert, Oriented, Normal Cognition Psychiatric: Normal Affect, Normal Mood Skin Exam: Other (lower posterior calf, instect sting, no stinger visible or palpable no swelling minimal surrounding redness.) Course - Vital Signs Last Recorded V/S: Last Vital Signs Temp 97.4 F 01/30/21 18:49 Pulse 86 01/30/21 20:34 Resp 18 01/30/21 20:34 BP 147/61 H 01/30/21 20:34 Pulse Ox 94 L 01/30/21 20:34 - Orders/Labs/Meds Meds: Medications Discontinued Medications Generic Name Dose Route Start Last Admin Trade Name Freq PRN Reason Stop Dose Admin Diphenhydramine HCl 50 mg 01/30/21 18:47 01/30/21 19:01 Diphenhydramine 50 Mg/Ml Sdv IVPUSH 01/30/21 18:48 50 mg ONETIME ONE Administration Diphenhydramine HCl Confirm 01/30/21 20:20 Diphenhydramine 25 Mg Tab Administered 01/30/21 20:21 Dose 150 mg .ROUTE .STK-MED ONE Diphenhydramine HCl 25 mg 01/30/21 19:04 Diphenhydramine 25 Mg Tab PO 01/30/21 19:05 .STK-MED ONE Famotidine 20 mg 01/30/21 18:47 01/30/21 18:59 Famotidine 20 Mg/2 Ml Sdv IVPUSH 01/30/21 18:48 20 mg ONETIME ONE Administration Sodium Chloride 1,000 mls @ 500 mls/hr 01/30/21 18:47 01/30/21 18:56 Normal Saline IV 01/30/21 20:46 500 mls/hr .BOLUS ONE Administration Methylprednisolone Sodium Succinate 125 mg 01/30/21 18:47 01/30/21 18:57 Methylprednisolone Sodium Succinate 125 Mg/2 Ml Sdv IVPUSH 01/30/21 18:48 125 mg ONETIME ONE Administration - Re-Assessments/Exams Free Text/Narrative Re-Assessment/Exam: Decrease in burning in leg no respiratory difficulty, decreased redness of extremity Departure - Departure Time of Disposition: 19:42 Disposition: Home, Self-Care 01 Condition: Good Clinical Impression: Bee sting reaction Qualifiers: Encounter type: initial encounter Injury intent: accidental or unintentional Qualified Code(s): T63.441A - Toxic effect of venom of bees, accidental (unintentional), initial encounter - Discharge Information *PRESCRIPTION DRUG MONITORING PROGRAM REVIEWED*: No *COPY OF PRESCRIPTION DRUG MONITORING REPORT IN PATIENT DARVIN: No Instructions: Bee, Wasp, or Hornet Sting, Adult Forms: ED Department Discharge Additional Instructions: benadryl 25-50mg every 4 hours x 24 hours then as needed pepcid 20mg twice daily for 3 days prednisone 20mg daily x 3 days epi pen .3mg immediately after bee sting urgent medical care if not responding to epipen or if symptoms worsen Sepsis Event Note (ED) - Evaluation Sepsis Screening Result: No Definite Risk
[2021-01-30] MEDS ORDERED: diphenhydrAMINE 25 MG Tab ONE (20:20)
[2021-01-30 20:36] VITALS: BP 147/61; PULSE 86
== END 2021-01-30 20:36 | disposition home or self-care (01) ==
LOC: DL.ED 19:03
DX: T63.441A Toxic effect of venom of bees, accidental (unintentional), initial encounter (principal); J44.9 Chronic obstructive pulmonary disease, unspecified; E11.22 Type 2 diabetes mellitus with diabetic chronic kidney disease; I12.9 Hypertensive chronic kidney disease with stage 1 through stage 4 chronic kidney disease, or unspecified chronic kidney disease; N18.30 Chronic kidney disease, stage 3 unspecified; K21.9 Gastro-esophageal reflux disease without esophagitis; E66.9 Obesity, unspecified; Z68.38 Body mass index [BMI] 38.0-38.9, adult; Z88.5 Allergy status to narcotic agent; Z91.041 Radiographic dye allergy status; Z91.030 Bee allergy status; Z88.8 Allergy status to other drugs, medicaments and biological substances
CPT/HCPCS: 99283; A9270; J1200; J2930; J3490; J7030; 96374; 96375

== ENCOUNTER 2021-03-11 23:23 | Emergency (ER) | payer MEDICARE, OTHER ==
[2021-03-11] MEDS ORDERED: Sodium Chloride 0.9% 1,000 ML IV ONE (23:57)
[2021-03-11] MEDS ORDERED: Ketorolac 30 MG/ML SDV IVPUSH ONE (23:57)
[2021-03-11] MEDS ORDERED: Ondansetron 4 MG/2 ML SDV IV ONE (23:57)
[2021-03-12 00:09] LABS: ANION GAP 14.2 mEq/L (7-13)
[2021-03-12] MEDS ORDERED: fentaNYL 100 MCG/2 ML SDV IVPUSH ONE (00:36)
[2021-03-12] MEDS ORDERED: Orphenadrine 60 MG/2 ML Inj IM ONE (01:48)
--- NOTE | 2021-03-12 02:16 | EDM.PDOC ---
"ED HPI GENERAL MEDICAL PROBLEM - General Chief Complaint: Flank Pain Stated Complaint: KIDNEY STONES, PER PT Time Seen by Provider: 03/11/21 23:49 Source of Information: Reports: Patient, RN, RN Notes Reviewed History Limitations: Reports: No Limitations - History of Present Illness INITIAL COMMENTS - FREE TEXT/NARRATIVE: Patient is a 65-year-old female who presents to ER with complaint of left flank pain that began suddenly approximately 730 to 8:00 PM. She describes the pain as a sharp pain that shoots down into the buttock region, rates pain 9/10. Patient states she has had flank pain in the past, has a history of kidney cysts and stones, and states the pain has never been this bad. Patient admits to frequency with urination, but states this is normal for her, denies any urgency or burning with urination. Admits to nausea. Denies fever, chills, chest pain, diarrhea. Patient denies any recent lifting or repetitive movements. Onset: Today, Sudden Left Flank Pain Score (Numeric/FACES): 10 - Related Data Allergies Allergy/AdvReac Type Severity Reaction Status Date / Time codeine Allergy Rash Verified 09/12/20 17:18 dicyclomine Allergy Rash Verified 09/12/20 17:18 gabapentin Allergy Swollen Verified 09/12/20 17:18 Tongue Iodinated Contrast Media Allergy Anaphylactic Verified 09/12/20 17:18 Shock methadone Allergy Nausea and Verified 09/12/20 17:18 Vomiting morphine Allergy Headache Verified 09/12/20 17:18 nortriptyline Allergy Rash Verified 09/12/20 17:18 nystatin Allergy Rash Verified 09/12/20 17:18 sucralfate Allergy Hives Verified 09/12/20 17:18 venom-honey bee Allergy Cannot Verified 09/12/20 17:18 [bee venom (honey bee)] Remember Home Meds: Home Meds Triamterene/Hydrochlorothiazid [Triamterene-HCTZ 37.5-25 MG] 2 tab PO ASDIRECTED 12/30/13 [History] lisinopriL [Prinivil] 5 mg PO DAILY 12/30/13 [History] Pantoprazole [ProTONIX] 40 mg PO BID 03/12/16 [History] Magnesium Oxide [Magnesium] 400 mg PO DAILY 02/01/17 [History] Calcium Carbonate/Vitamin D3 [Calcium 250+D] 1 tab PO DAILY 05/17/18 [History] Cholecalciferol (Vitamin D3) [Vitamin D] 1,000 unit PO DAILY 10/20/19 [History] Ondansetron [Zofran] 8 mg PO DAILY PRN 10/20/19 [History] Tiotropium [place] [Spiriva Respimat] 2.5 mcg INH DAILY 10/20/19 [History] Vitamin B Complex 1,000 mcg PO DAILY 10/20/19 [History] atorvaSTATin Calcium [Lipitor] 20 mg PO DAILY 10/20/19 [History] Baclofen 10 mg PO DAILY 08/16/20 [History] PARoxetine [Paxil] 20 mg PO DAILY 08/16/20 [History] Albuterol/Ipratropium [DuoNeb 3.0-0.5 MG/3 ML] 1 vial INH ASDIRECTED PRN 08/17/20 [History] Triamcinolone Acetonide [Kenalog 0.1% Crm] 1 applic TOP ASDIRECTED 08/17/20 [History] Past Medical History HEENT History: Reports: Other (See Below) Other HEENT History: Hx of eye surgery Cardiovascular History: Reports: Heart Murmur, Hypertension Respiratory History: Reports: COPD, Sleep Apnea Gastrointestinal History: Reports: Chronic Constipation, GERD, Other (See Below) Other Gastrointestinal History: fatty liver Genitourinary History: Reports: Chronic Renal Insuffiency, Other (See Below) Other Genitourinary History: Stage III CKD FLOWER MAKER History: Reports: None Other FLOWER MAKER History: Hysterectomy Musculoskeletal History: Reports: Fibromyalgia Other Musculoskeletal History: Carpal tunnel surgery. EDEMA OF EXTREMITIES Neurological History: Reports: Headaches, Chronic, Other (See Below) Other Neuro History: Chronic pain, occipital headache, and opioid dependence Psychiatric History: Reports: Anxiety, Depression, Other (See Below) Other Psychiatric History: Opioid dependence Endocrine/Metabolic History: Reports: Diabetes, Type II, Hypomagnesemia, Obesity/BMI 30+ Other Endocrine/Metabolic History: Hyperlipidemia Hematologic History: Reports: Anemia, B12 Deficiency Immunologic History: Reports: None Oncologic (Cancer) History: Reports: Breast Dermatologic History: Reports: None - Infectious Disease History Infectious Disease History: Reports: None - Past Surgical History Head Surgeries/Procedures: Reports: None HEENT Surgical History: Reports: Adenoidectomy, Tonsillectomy Other HEENT Surgeries/Procedures: eye lid surg Cardiovascular Surgical History: Reports: None Respiratory Surgical History: Reports: None GI Surgical History: Reports: Appendectomy, Cholecystectomy, Colonoscopy, EGD, Esophageal Dilatation Other GI Surgeries/Procedures: liver bipopsy Female Surgical History: Reports: Hysterectomy Endocrine Surgical History: Reports: None Neurological Surgical History: Reports: None Musculoskeletal Surgical History: Reports: Carpal Tunnel, Other (See Below) Other Musculoskeletal Surgeries/Procedures:: BURSA ELBOW SURGERY Oncologic Surgical History: Reports: Biopsy of Breast Dermatological Surgical History: Reports: None Social & Family History - Family History Family Medical History: No Pertinent Family History Cardiac: Reports: CAD, High Cholesterol, Hypertension, [place] Respiratory: Reports: Other (See Below) Other Respiratory Family Hisory: Lung cancer GI: Reports: Cholelithiasis Other Family History: Father had kidney disease requiring dialysis OBGYN: Reports: Other (See Below) Other OBGYN Family History: Sister had breast cancer Endocrine/Metabolic: Reports: Other (See Below) Other Endocrine/Metabolic Family History: Mother had DM Oncologic: Reports: Breast - Tobacco Use Tobacco Use Status *Q: Current Every Day Tobacco User Years of Tobacco use: 30 Packs/Tins Daily: 0.5 Second Hand Smoke Exposure: Yes - Caffeine Use Caffeine Use: Reports: None Other Caffeine Use: Soda Caffeine Use Comment: 3 cups coffee daily - Recreational Drug Use Recreational Drug Use: No - Living Situation & Occupation Living situation: Reports: with Family, Single Occupation: Employed ED ROS GENERAL - Review of Systems Review Of Systems: Comprehensive ROS is negative, except as noted in HPI. ED EXAM, RENAL/ - Physical Exam Exam: See Below Exam Limited By: No Limitations General Appearance: Alert, WD/WN, Mild Distress Eye Exam: Bilateral Eye: EOMI, Normal Inspection Ears: Normal External Exam, Hearing Grossly Normal Nose: Normal Inspection Throat/Mouth: Normal Inspection, Normal Voice, No Airway Compromise Head: Atraumatic, Normocephalic Neck: Normal Inspection, Supple, Non-Tender, Full Range of Motion Respiratory/Chest: No Respiratory Distress, Lungs Clear, Normal Breath Sounds, No Accessory Muscle Use, Chest Non-Tender, Crackles (bases bilaterally) Cardiovascular: Normal Peripheral Pulses, Regular Rate, Rhythm, No Edema, No Gallop, No JVD, No Murmur, No Rub GI/Abdominal: Normal Bowel Sounds, Soft, Non-Tender, No Organomegaly, No Distention, No Abnormal Bruit (Female) Exam: Deferred Rectal (Female) Exam: Deferred Back Exam: Full Range of Motion, CVA Tenderness (L) Extremities: Normal Inspection, Normal Range of Motion, Non-Tender, Normal Capillary Refill, No Pedal Edema Neurological: Alert, Oriented, CN II-XII Intact, Normal Cognition, Normal Gait, Normal Reflexes, No Motor/Sensory Deficits Psychiatric: Normal Affect, Normal Mood Skin Exam: Warm, Dry, Intact, Normal Color, No Rash Lymphatic: No Adenopathy Course - Vital Signs Last Recorded V/S: Last Vital Signs Temp 97.7 F 03/12/21 02:32 Pulse 74 03/12/21 02:32 Resp 18 03/12/21 02:32 BP 120/63 03/12/21 02:32 Pulse Ox 93 L 03/12/21 02:32 - Orders/Labs/Meds Labs: Laboratory Tests 03/11/21 03/11/21 03/11/21 Range/Units 23:20 23:50 23:50 WBC 16.1 H (5.0-10.0) 10^3/uL RBC 5.53 H (4.2-5.4) 10^6/uL Hgb 16.2 H (12.0-16.0) g/dL Hct 49.0 H (37.0-47.0) % MCV 88.6 D (80-100) fL MCH 29.3 (27.0-34.0) pg MCHC 33.1 (33.0-35.0) g/dL Plt Count 309 (150-450) 10^3/uL Neut % (Auto) 60.6 (42.2-75.2) % Lymph % (Auto) 27.7 (20.5-50.1) % [place] % (Auto) 9.5 H (2-8) % Eos % (Auto) 1.8 (1.0-3.0) % Baso % (Auto) 0.4 (0.0-1.0) % Sodium 140 (136-145) mmol/L Potassium 4.2 (3.5-5.1) mmol/L Chloride 101 (98-107) mmol/L Carbon Dioxide 29 (21-32) mmol/L Anion Gap 14.2 H (7-13) mEq/L BUN 22 H (7-18) mg/dL Creatinine 1.42 H (0.55-1.02) mg/dL Est Cr Clr Drug Dosing 34.11 mL/min Estimated GFR (MDRD) 37 BUN/Creatinine Ratio 15.5 (No establ ref range) Glucose 99 (70-99) mg/dL Calcium 9.1 (8.5-10.1) mg/dL Total Bilirubin 0.3 (0.2-1.0) mg/dL AST 20 (15-37) U/L ALT 33 (14-59) U/L Alkaline Phosphatase 106 (46-116) U/L C-Reactive Protein 0.7 (0.0-0.9) mg/dL Total Protein 8.1 (6.4-8.2) g/dL Albumin 3.7 (3.4-5.0) g/dL Globulin 4.4 Albumin/Globulin Ratio 0.8 Urine Color Yellow (YELLOW) Urine Appearance Clear (CLEAR) Urine pH 6.0 (5.0-9.0) Ur Specific [place] 1.015 (1.005-1.030) Urine Protein Negative (NEGATIVE) Urine Glucose (UA) Negative (NEGATIVE) Urine Ketones Negative (NEGATIVE) Urine Occult Blood Negative (NEGATIVE) Urine Nitrite Negative (NEGATIVE) Urine Bilirubin Negative (NEGATIVE) Urine Urobilinogen 0.2 (0.2-1.0) mg/dL Ur Leukocyte Esterase Negative (NEGATIVE) Meds: Medications Discontinued Medications Generic Name Dose Route Start Last Admin Trade Name Freq PRN Reason Stop Dose Admin Fentanyl 50 mcg 03/12/21 00:36 03/12/21 00:42 Fentanyl 100 Mcg/2 Ml Sdv IVPUSH 03/12/21 00:37 50 mcg ONETIME ONE Administration Sodium Chloride 1,000 mls @ 999 mls/hr 03/11/21 23:57 03/12/21 00:07 Normal Saline IV 03/12/21 00:57 999 mls/hr .BOLUS ONE Administration Ketorolac Tromethamine 30 mg 03/11/21 23:57 03/12/21 00:10 Ketorolac 30 Mg/Ml Sdv IVPUSH 03/11/21 23:58 30 mg ONETIME ONE Administration Ondansetron HCl 4 mg 03/11/21 23:57 03/12/21 00:08 Ondansetron 4 Mg/2 Ml Sdv IV 03/11/21 23:58 4 mg ONETIME ONE Administration Orphenadrine Citrate 60 mg 03/12/21 01:48 03/12/21 02:05 Orphenadrine 60 Mg/2 Ml Inj IM 03/12/21 01:49 60 mg ONETIME ONE Administration - Radiology Interpretation Free Text/Narrative:: CT abdomen pelvis without contrast: [facility] [place] [facility] Final Radiology Report Call: [phone] assistance Online chat: [email or web address] Name: KEVEN IBARRA Age: 65Years F Date: 03/12/2021 SSN: -- : [id number] Study: CT ABDOMEN PELVIS WO CONT Requesting Physician: Erin Menendez Images: [id number] Addl Studies: Provided Clinical History: left flank pain Contrast: Without Contrast Medium: Contrast Amount: Contrast Method: Page 1 of 2 PROCEDURE INFORMATION: Exam: CT Abdomen And Pelvis Without Contrast Exam date and time: 03/12/2021 12:59 AM Age: 65 years old Clinical indication: Left flank pain TECHNIQUE: Imaging protocol: Computed tomography of the abdomen and pelvis without contrast. Coronal and sagittal reformatted images are submitted. Radiation optimization: All CT scans at this facility use at least one of these dose optimization techniques: automated exposure control; mA and/or kV adjustment per patient size (includes targeted exams where dose is matched to clinical indication); or iterative reconstruction. COMPARISON: CT Abdomen Pelvis wo Cont 09/12/2020 FINDINGS: The study is limited by the lack of IV contrast. Visualized portions of the heart and lung bases demonstrate a stable bilateral lower lobe mosaic attenuation pattern, but are otherwise unremarkable. Again seen is a staple line along the anterosuperior margin of the distal body of the stomach, and additional postop changes compatible with prior cholecystectomy, hysterectomy, and appendectomy. There is a stable small umbilical hernia through a 4.5 cm fascial defect, with a loop of small bowel again extending into the hernia sac, without associated strangulation or small bowel obstruction. Also again demonstrated are small left renal cysts which do not require follow- up, a right quadratus femoris lipoma, age-appropriate lumbar spondylosis, and mild to moderate atherosclerotic vascular calcifications, without aneurysm. The noncontrasted abdominal and pelvic organs, vascular and intestinal structures, osseous, muscular, and soft tissue structures are otherwise unremarkable. No abdominal or pelvic inflammatory process, free fluid or air, suspicious soft tissue mass, or lymphadenopathy. No urinary calculi or urinary tract obstruction. KEVEN IBARRA | Final Radiology Report CONFIDENTIALITY STATEMENT This report is intended only for use by the referring physician, and only in accordance with law. If you received this in error, call [phone]. Page 2 of 2 IMPRESSION: --No acute abdominopelvic abnormality. --Chronic findings are described above. Thank you for allowing us to participate in the care of your patient. Dictated and Authenticated by: Neil Pillai MD 03/12/2021 2:27 AM Central Time ([place] & [place]) See radiologist report Departure - Departure Time of Disposition: 02:53 Disposition: Home, Self-Care 01 Condition: Good Clinical Impression: Lumbar radiculopathy, Muscle spasm - Discharge Information *PRESCRIPTION DRUG MONITORING PROGRAM REVIEWED*: No *COPY OF PRESCRIPTION DRUG MONITORING REPORT IN PATIENT DARVIN: No Instructions: Muscle Cramps and Spasms, [id number], Flank Pain, Adult, [id number] Forms: ED Department Discharge Additional Instructions: Rx: Cyclobenzaprine 10 mg 1 orally 3 times daily as needed for muscle spasm/pain May use Tylenol as directed for pain May use heating pad to the area as tolerated Follow-up with your primary care provider in the clinic if no improvement Return to the ER with any worsening of symptoms Sepsis Event Note (ED) - Focused Exam Vital Signs: Vital Signs Temp Pulse Resp BP Pulse Ox 03/12/21 02:32 97.7 F 74 18 120/63 93 L 03/11/21 23:28 97.1 F 96 18 146/79 H 94 L"
--- NOTE | 2021-03-12 02:27 | CT ---
PROCEDURE INFORMATION: Exam: CT Abdomen And Pelvis Without Contrast Exam date and time: 03/12/2021 12:59 AM Age: 65 years old Clinical indication: Left flank pain TECHNIQUE: Imaging protocol: Computed tomography of the abdomen and pelvis without contrast. Coronal and sagittal reformatted images are submitted. Radiation optimization: All CT scans at this facility use at least one of these dose optimization techniques: automated exposure control; mA and/or kV adjustment per patient size (includes targeted exams where dose is matched to clinical indication); or iterative reconstruction. COMPARISON: CT Abdomen Pelvis wo Cont 09/12/2020 FINDINGS: The study is limited by the lack of IV contrast. Visualized portions of the heart and lung bases demonstrate a stable bilateral lower lobe mosaic attenuation pattern, but are otherwise unremarkable. Again seen is a staple line along the anterosuperior margin of the distal body of the stomach, and additional postop changes compatible with prior cholecystectomy, hysterectomy, and appendectomy. There is a stable small umbilical hernia through a 4.5 cm fascial defect, with a loop of small bowel again extending into the hernia sac, without associated strangulation or small bowel obstruction. Also again demonstrated are small left renal cysts which do not require follow-up, a right quadratus femoris lipoma, age-appropriate lumbar spondylosis, and mild to moderate atherosclerotic vascular calcifications, without aneurysm. The noncontrasted abdominal and pelvic organs, vascular and intestinal structures, osseous, muscular, and soft tissue structures are otherwise unremarkable. No abdominal or pelvic inflammatory process, free fluid or air, suspicious soft tissue mass, or lymphadenopathy. No urinary calculi or urinary tract obstruction. IMPRESSION: --No acute abdominopelvic abnormality. --Chronic findings are described above.
[2021-03-12 02:33] VITALS: BP 120/63; PULSE 74
== END 2021-03-12 03:04 | disposition home or self-care (01) ==
LOC: DL.ED 23:23
DX: M54.16 Radiculopathy, lumbar region (principal); M62.830 Muscle spasm of back; K21.9 Gastro-esophageal reflux disease without esophagitis; J44.9 Chronic obstructive pulmonary disease, unspecified; I12.9 Hypertensive chronic kidney disease with stage 1 through stage 4 chronic kidney disease, or unspecified chronic kidney disease; E11.21 Type 2 diabetes mellitus with diabetic nephropathy; N18.30 Chronic kidney disease, stage 3 unspecified; Z88.5 Allergy status to narcotic agent; Z88.8 Allergy status to other drugs, medicaments and biological substances; Z91.041 Radiographic dye allergy status; Z91.030 Bee allergy status; E66.9 Obesity, unspecified; E78.5 Hyperlipidemia, unspecified; Z72.0 Tobacco use; Z68.38 Body mass index [BMI] 38.0-38.9, adult
CPT/HCPCS: 36415; 74176; 80053; 85025; 86140; 96372; 96374; 96375; 99284; J1885; J2360; J2405; J3010; J7030

== ENCOUNTER 2021-10-21 16:46 | Inpatient (IN) | payer MEDICARE, OTHER ==
[2021-10-21 17:39] LABS: ANION GAP 12.2 mEq/L (7-13)
[2021-10-21] MEDS ORDERED: Lactated Ringers 1,000 ML IV ONE ×3 (18:01→19:13)
[2021-10-21 18:32] LABS: CORONAVIRUS COVID-19 NAA NEGATIVE (NEGATIVE)
[2021-10-21] MEDS ORDERED: Iopamidol 755 Mg/ML 100 ML Bottle IVPUSH ONE (18:32)
[2021-10-21] MEDS ORDERED: methylPREDNISolone Sodium Succinate 125 MG/2 ML SDV IVPUSH PRN (18:32)
[2021-10-21] MEDS ORDERED: diphenhydrAMINE 50 MG/ML SDV IVPUSH PRN (18:32)
[2021-10-21] MEDS ORDERED: Piperacillin/Tazobactam 3.375 GM in Sodium Chloride 0.9% 100 ML IV ONE (19:30)
[2021-10-21] MEDS ORDERED: Acetaminophen 325 MG Tab PO ONE (19:59)
[2021-10-21] MEDS ORDERED: Zolpidem 5 MG Tab PO PRN (20:35)
[2021-10-21] MEDS ORDERED: HYDROmorphone 1 MG/ML Syringe IVPUSH PRN (20:35)
[2021-10-21] MEDS ORDERED: Docusate Sodium 100 MG Cap PO PRN (20:35)
[2021-10-21] MEDS ORDERED: Albuterol/Ipratropium 3.0-0.5 MG/3 ML Neb Soln NEB PRN (20:35)
[2021-10-21] MEDS ORDERED: Bisacodyl 5 MG Tab PO PRN (20:35)
[2021-10-21] MEDS ORDERED: Polyethylene Glycol 3350 Powder 17 GM Packet PO PRN (20:35)
[2021-10-21] MEDS ORDERED: Magnesium Hydroxide 400 MG/5 ML Susp 30 ML Cup PO PRN (20:35)
[2021-10-21] MEDS ORDERED: Nicotine 21 MG/24 Hr Patch TRDERM ONE (21:24)
[2021-10-21] MEDS ORDERED: SODIUM CHLORIDE 0.9% IV SCH (22:00)
[2021-10-21] MEDS ORDERED: VANCOMYCIN IV SCH (22:00)
[2021-10-21] MEDS ORDERED: Glucagon,Human Recombinant 1 MG Vial IM PRN (22:14)
[2021-10-21] MEDS ORDERED: 50% Dextrose in Water 50 ML Syringe IVPUSH PRN (22:14)
[2021-10-21] MEDS ORDERED: VANCOmycin 1.5 GM/300 ML 1.5 GM in Premix Bag 1 BAG IV ONE (22:15)
[2021-10-21] MEDS ORDERED: Pantoprazole 40 MG Vial IVPUSH ONE (22:18)
[2021-10-21] MEDS ORDERED: Potassium Chloride Riders 50 ML ONE (22:19)
[2021-10-21] MEDS: Sodium Chloride 0.9% 1,000 ML IV SCH (22:29)
[2021-10-21] MEDS: Potassium Chloride 10 MEQ in Premix Bag 1 BAG IV SCH (22:33)
[2021-10-21] MEDS: Saccharomyces Boulardii (Probiotic) 250 MG Cap PO SCH (23:02)
[2021-10-21] MEDS: Potassium Chloride Riders 50 ML IV SCH (23:40)
[2021-10-22] MEDS: Potassium Chloride Riders 50 ML IV SCH ×3 (00:48→02:55)
[2021-10-22] MEDS ORDERED: Piperacillin/Tazobactam 3.375 GM in Sodium Chloride 0.9% 100 ML IV SCH (01:30)
[2021-10-22] MEDS: Piperacillin/Tazobactam 2.25 GM in Sodium Chloride 0.9% 50 ML IV SCH ×4 (02:46→21:25)
[2021-10-22] MEDS: Potassium Chloride 10 MEQ in Premix Bag 1 BAG IV SCH (04:03)
[2021-10-22] MEDS: Acetaminophen/HYDROcodone 325-5 MG Tab PO PRN ×2 (04:26→19:06)
[2021-10-22] MEDS: guaiFENesin/Dextromethorphan 100-10 MG/5 ML Soln 5 ML Cup PO PRN ×2 (04:29→21:05)
[2021-10-22] MEDS: Hydrocortisone Sodium Succinate 100 MG/2 ML SDV IVPUSH SCH ×3 (06:23→21:05)
[2021-10-22] MEDS: Sodium Chloride 0.9% 1,000 ML IV SCH ×2 (06:29→16:29)
[2021-10-22] MEDS: Insulin Lispro 100 Units/ML 3 ML Vial SUBCUT SCH ×3 (08:49→18:00)
[2021-10-22] MEDS: Saccharomyces Boulardii (Probiotic) 250 MG Cap PO SCH ×2 (08:50→21:05)
[2021-10-22] MEDS: Pantoprazole 40 MG Vial IVPUSH SCH ×2 (08:51→21:05)
[2021-10-22] MEDS ORDERED: Nicotine 21 MG/24 Hr Patch TRDERM SCH (09:00)
[2021-10-22 10:58] LABS: ANION GAP 13.6 mEq/L (7-13)
[2021-10-22] MEDS ORDERED: Magnesium Sulfate/Water 2 GM in Premix Bag 1 BAG IV ONE (11:22)
[2021-10-22] MEDS: Nicotine 21 MG/24 Hr Patch TRDERM SCH (20:21)
[2021-10-23] MEDS: Piperacillin/Tazobactam 2.25 GM in Sodium Chloride 0.9% 50 ML IV SCH ×4 (01:51→20:28)
[2021-10-23] MEDS: Sodium Chloride 0.9% 1,000 ML IV SCH ×2 (03:13→13:39)
[2021-10-23] MEDS: Ondansetron 4 MG/2 ML SDV IVPUSH PRN (05:16)
[2021-10-23] MEDS: Hydrocortisone Sodium Succinate 100 MG/2 ML SDV IVPUSH SCH ×2 (06:18→21:58)
[2021-10-23 07:13] LABS: ANION GAP 12.7 mEq/L (7-13)
[2021-10-23] MEDS: Acetaminophen/HYDROcodone 325-5 MG Tab PO PRN ×2 (08:04→21:54)
[2021-10-23] MEDS ORDERED: Acetaminophen/Butalbital/Caffeine 325-50-40 MG Tab PO PRN (08:45)
[2021-10-23] MEDS: Nicotine 21 MG/24 Hr Patch TRDERM SCH (08:45)
[2021-10-23] MEDS: Pantoprazole 40 MG Vial IVPUSH SCH ×2 (08:45→21:58)
[2021-10-23] MEDS: Saccharomyces Boulardii (Probiotic) 250 MG Cap PO SCH ×2 (08:45→21:53)
[2021-10-23] MEDS: Insulin Lispro 100 Units/ML 3 ML Vial SUBCUT SCH ×3 (08:46→18:20)
[2021-10-23] MEDS ORDERED: Hydrocortisone Sodium Succinate 100 MG/2 ML SDV IVPUSH SCH (09:00)
[2021-10-23] MEDS ORDERED: GUM PO SCH (14:15)
[2021-10-23] MEDS ORDERED: NICOTINE POLACRILEX 4 MG PO SCH (14:15)
[2021-10-23] MEDS: Carboxymethylcellulose Sodium 1% Ophth Gel 0.4 ML UD EYEBOTH SCH ×2 (19:15→21:39)
[2021-10-23] MEDS ORDERED: atorvaSTATin 20 MG Tab PO SCH (21:00)
[2021-10-23] MEDS: Fluticasone NASAL Spray 16 GM Bottle NASBOTH SCH (21:35)
[2021-10-23] MEDS: Formoterol/Mometasone 200-5 MCG 8.8 GM Inhaler IH SCH (21:36)
[2021-10-23] MEDS: guaiFENesin/Dextromethorphan 100-10 MG/5 ML Soln 5 ML Cup PO PRN (21:58)
[2021-10-24] MEDS: Piperacillin/Tazobactam 2.25 GM in Sodium Chloride 0.9% 50 ML IV SCH ×2 (02:20→07:53)
[2021-10-24 06:53] LABS: ANION GAP 8.3 mEq/L (7-13)
[2021-10-24] MEDS: Insulin Lispro 100 Units/ML 3 ML Vial SUBCUT SCH ×2 (08:00→13:06)
[2021-10-24] MEDS ORDERED: Tiotropium Inhaler 18 MCG Inhalation Powder Cap Kit of 5 INH SCH (09:00)
[2021-10-24] MEDS ORDERED: Cyanocobalamin (Vitamin B12) 1,000 MCG Tab PO SCH (09:00)
[2021-10-24] MEDS ORDERED: Aspirin 81 MG Tab.EC PO SCH (09:00)
[2021-10-24] MEDS ORDERED: Calcium Carbonate/Vitamin D3 1250 MG-5 MCG Tab PO SCH (09:00)
[2021-10-24] MEDS ORDERED: PARoxetine 20 MG Tab PO SCH (09:00)
[2021-10-24] MEDS ORDERED: ALOGLIPTIN BENZOATE 12.5 MG PO SCH (09:00)
[2021-10-24] MEDS ORDERED: Cholecalciferol (Vitamin D3) 25 MCG Tab PO SCH (09:00)
[2021-10-24] MEDS: Saccharomyces Boulardii (Probiotic) 250 MG Cap PO SCH (09:21)
[2021-10-24] MEDS: Fluticasone NASAL Spray 16 GM Bottle NASBOTH SCH (09:22)
[2021-10-24] MEDS: Formoterol/Mometasone 200-5 MCG 8.8 GM Inhaler IH SCH (09:22)
[2021-10-24] MEDS: Nicotine 21 MG/24 Hr Patch TRDERM SCH (09:22)
[2021-10-24] MEDS: Pantoprazole 40 MG Vial IVPUSH SCH (09:23)
[2021-10-24] MEDS: Carboxymethylcellulose Sodium 1% Ophth Gel 0.4 ML UD EYEBOTH SCH ×2 (09:23→13:06)
[2021-10-24] MEDS: Hydrocortisone Sodium Succinate 100 MG/2 ML SDV IVPUSH SCH (09:23)
[2021-10-24] MEDS ORDERED: Potassium Chloride 10 MEQ Tab.ER PO ONE (10:15)
[2021-10-24] MEDS ORDERED: Ertapenem 1 GM in Sodium Chloride 0.9% 50 ML IV SCH (11:00)
[2021-10-24] MEDS: Ondansetron 4 MG/2 ML SDV IVPUSH PRN (12:03)
[2021-10-24 12:11] VITALS: BP 135/56; PULSE 72
== END 2021-10-24 13:24 | disposition home or self-care (01) | DRG 872 ==
LOC: DL.ED 16:46 → DL.MS 20:04 → DL.ED 20:18
PROVIDERS: ADMIT Internal Medicine; ATTEND Internal Medicine
DX: N12 Tubulo-interstitial nephritis, not specified as acute or chronic (principal); R53.1 Weakness; A41.51 Sepsis due to Escherichia coli [E. coli]; J44.9 Chronic obstructive pulmonary disease, unspecified; G47.30 Sleep apnea, unspecified; N10 Acute pyelonephritis; E87.1 Hypo-osmolality and hyponatremia; Z68.41 Body mass index [BMI] 40.0-44.9, adult; J44.1 Chronic obstructive pulmonary disease with (acute) exacerbation; N17.9 Acute kidney failure, unspecified; G89.29 Other chronic pain; K21.9 Gastro-esophageal reflux disease without esophagitis; I12.9 Hypertensive chronic kidney disease with stage 1 through stage 4 chronic kidney disease, or unspecified chronic kidney disease; E78.5 Hyperlipidemia, unspecified; D64.9 Anemia, unspecified; N18.30 Chronic kidney disease, stage 3 unspecified; Z85.3 Personal history of malignant neoplasm of breast; Z86.16 Personal history of COVID-19; D63.1 Anemia in chronic kidney disease; G47.33 Obstructive sleep apnea (adult) (pediatric); G89.4 Chronic pain syndrome; Z79.899 Other long term (current) drug therapy; F41.9 Anxiety disorder, unspecified; E11.22 Type 2 diabetes mellitus with diabetic chronic kidney disease; Z20.822 Contact with and (suspected) exposure to COVID-19; F32.A Depression, unspecified; E78.00 Pure hypercholesterolemia, unspecified; E66.9 Obesity, unspecified; K59.09 Other constipation; E87.8 Other disorders of electrolyte and fluid balance, not elsewhere classified; M79.7 Fibromyalgia; E53.8 Deficiency of other specified B group vitamins; Z90.49 Acquired absence of other specified parts of digestive tract; Z88.5 Allergy status to narcotic agent; Z88.8 Allergy status to other drugs, medicaments and biological substances; Z88.2 Allergy status to sulfonamides; Z91.030 Bee allergy status; Z90.710 Acquired absence of both cervix and uterus
CPT/HCPCS: 0240U; 36415; 71260; 74176; 80048; 80053; 81001; 82533; 82947; 83605; 83690; 83735; 84145; 84484; 85025; 85379; 86140; 87040; 87086; 87088; 87186; 87493; 87641; 93005; 93010; 93971; 96361; 96374; 97161-GP; 97165-GO; 99284; 99285-25; A9270-GY; C9113; J1335; J1720; J2405; J2543; J3370; J3475; J3480; J7030; J7120; Q9967

== ENCOUNTER 2022-02-03 19:14 | Emergency (ER) | payer MEDICARE, OTHER | END 2022-02-03 19:58 | disposition left against medical advice (07) | LOC: DL.ED 19:14 | DX: Z53.21 Procedure and treatment not carried out due to patient leaving prior to being seen by health care provider (principal) ==

== ENCOUNTER 2022-06-13 20:15 | Emergency (ER) | payer MEDICARE, OTHER ==
[2022-06-13] MEDS ORDERED: Ondansetron 4 MG/2 ML SDV IVPUSH ONE (20:55)
[2022-06-13] MEDS ORDERED: Ketorolac 30 MG/ML SDV IVPUSH ONE (20:56)
[2022-06-13 21:13] LABS: AMPHETAMINES,URINE NEGATIVE (NEGATIVE); BARBITURATES,URINE NEGATIVE (NEGATIVE); BENZODIAZEPINE,URINE NEGATIVE (NEGATIVE); MDMA (ECSTASY), URINE NEGATIVE (NEGATIVE); METHADONE,URINE NEGATIVE (NEGATIVE); METHAMPHETAMINES,URINE NEGATIVE (NEGATIVE); OPIATES,URINE NEGATIVE (NEGATIVE); OXYCODONE,URINE NEGATIVE (NEGATIVE); PHENCYCLIDINE,URINE NEGATIVE (NEGATIVE); TCA,URINE NEGATIVE (NEGATIVE)
[2022-06-13 21:19] LABS: ANION GAP 10.9 mEq/L (7-13); CHLORIDE,CL 102 mmol/L (98-107); SODIUM,NA 142 mmol/L (136-145)
[2022-06-13 21:37] LABS: ESTIMATED GFR 48 mL/min (>=60)
[2022-06-13 21:37] LABS: CORONAVIRUS COVID-19 NAA NEGATIVE (NEGATIVE); RESPIRATORY SYNCYTIAL VIR NAA NEGATIVE (NEGATIVE)
[2022-06-13] MEDS ORDERED: HYDROmorphone 1 MG/ML Syringe IVPUSH ONE (21:40)
[2022-06-13 22:53] VITALS: BP 114/58; PULSE 86
[2022-06-13] MEDS ORDERED: Nitrofurantoin Monohydrate/Macrocrystalline 100 MG Cap PO ONE (23:08)
== END 2022-06-13 23:27 | disposition home or self-care (01) ==
LOC: DL.ED 20:15
DX: N30.00 Acute cystitis without hematuria (principal); M47.819 Spondylosis without myelopathy or radiculopathy, site unspecified; K43.9 Ventral hernia without obstruction or gangrene; J44.9 Chronic obstructive pulmonary disease, unspecified; E11.22 Type 2 diabetes mellitus with diabetic chronic kidney disease; I12.9 Hypertensive chronic kidney disease with stage 1 through stage 4 chronic kidney disease, or unspecified chronic kidney disease; N18.30 Chronic kidney disease, stage 3 unspecified; N28.1 Cyst of kidney, acquired; E78.5 Hyperlipidemia, unspecified; F17.210 Nicotine dependence, cigarettes, uncomplicated; E66.9 Obesity, unspecified; Z88.5 Allergy status to narcotic agent; Z88.8 Allergy status to other drugs, medicaments and biological substances; Z91.030 Bee allergy status; Z79.899 Other long term (current) drug therapy; Z68.39 Body mass index [BMI] 39.0-39.9, adult; Z79.82 Long term (current) use of aspirin; Z20.822 Contact with and (suspected) exposure to COVID-19
CPT/HCPCS: 0241U; 36415; 74177; 80053; 80305-QW; 81001; 82150; 83605; 83690; 83735; 85025; 86140; 96374; 96375; 99284; 99284-25; A9270-GY; J1170; J1885; J2405

== ENCOUNTER 2022-09-28 10:57 | Emergency (ER) | payer MEDICARE, OTHER ==
[2022-09-28] MEDS ORDERED: Sodium Chloride 0.9% 10 ML Syringe FLUSH PRN (11:00)
[2022-09-28 11:48] LABS: CHLORIDE,CL 103 mmol/L (98-107); SODIUM,NA 141 mmol/L (136-145)
[2022-09-28 11:54] LABS: ESTIMATED GFR 43 mL/min (>=60)
[2022-09-28] MEDS ORDERED: Sodium Chloride 0.9% 1,000 ML IV ONE (11:58)
[2022-09-28 12:10] LABS: AMPHETAMINES,URINE NEGATIVE (NEGATIVE); BARBITURATES,URINE NEGATIVE (NEGATIVE); BENZODIAZEPINE,URINE NEGATIVE (NEGATIVE); MDMA (ECSTASY), URINE NEGATIVE (NEGATIVE); METHADONE,URINE NEGATIVE (NEGATIVE); METHAMPHETAMINES,URINE NEGATIVE (NEGATIVE); OPIATES,URINE NEGATIVE (NEGATIVE); OXYCODONE,URINE NEGATIVE (NEGATIVE); PHENCYCLIDINE,URINE NEGATIVE (NEGATIVE); TCA,URINE NEGATIVE (NEGATIVE)
[2022-09-28 13:21] VITALS: BP 118/59; PULSE 79
== END 2022-09-28 13:16 | disposition home or self-care (01) ==
LOC: DL.ED 10:57
DX: E86.0 Dehydration (principal); N30.00 Acute cystitis without hematuria; K21.9 Gastro-esophageal reflux disease without esophagitis; J44.9 Chronic obstructive pulmonary disease, unspecified; I12.9 Hypertensive chronic kidney disease with stage 1 through stage 4 chronic kidney disease, or unspecified chronic kidney disease; E11.22 Type 2 diabetes mellitus with diabetic chronic kidney disease; N18.30 Chronic kidney disease, stage 3 unspecified; E66.9 Obesity, unspecified; Z68.41 Body mass index [BMI] 40.0-44.9, adult; Z79.82 Long term (current) use of aspirin; Z88.5 Allergy status to narcotic agent; Z88.1 Allergy status to other antibiotic agents; Z79.899 Other long term (current) drug therapy; Z88.8 Allergy status to other drugs, medicaments and biological substances; Z91.030 Bee allergy status
CPT/HCPCS: 36415; 70450; 80053; 80305; 80307; 81001; 82947; 83605; 83735; 85025; 85610; 86140; 87086; 87088; 87186; 93005; 93010; 96360; 99284; 99285; J7030; J3490

== ENCOUNTER 2022-11-21 19:50 | Emergency (ER) | payer MEDICARE, OTHER ==
[2022-11-21] MEDS ORDERED: Sodium Chloride 0.9% 10 ML Syringe FLUSH PRN (20:08)
[2022-11-21 20:37] VITALS: BP 114/59; PULSE 87
[2022-11-21 20:39] LABS: BASOPHILS PERCENT AUTO 0.3 % (0.0-1.0); HEMATOCRIT 47.4 % (37.0-47.0); HEMOGLOBIN 15.9 g/dL (12.0-16.0); LYMPHOCYTES PERCENT AUTO 24.8 % (20.5-50.1); MEAN CORPUSCULAR HEMOGLOBIN 29.9 pg (27.0-34.0); MEAN CORPUSCULAR HGB CONC 33.5 g/dL (33.0-35.0); MEAN CORPUSCULAR VOLUME 89.3 fL (80-100); MONOCYTES PERCENT AUTO 9.8 % (2-8); NEUTROPHILS PERCENT AUTO 63.1 % (42.2-75.2); PLATELET COUNT,PLT 307 10^3/uL (150-450); RED BLOOD CELL COUNT 5.31 10^6/uL (4.2-5.4); WHITE BLOOD CELL COUNT,WBC 11.1 10^3/uL (5.0-10.0)
[2022-11-21 20:58] LABS: PROTHROMBIN TIME 10.1 SEC (9.0-12.0); PTT,PARTIAL THROMBOPLSTIN TIME 26.7 SEC (22.0-34.0)
[2022-11-21 21:06] LABS: LACTIC ACID 1.3 mmol/L (0.4-2.0)
[2022-11-21 21:07] LABS: A/G RATIO 0.9; ALANINE AMINOTRANSFERASE,ALT 26 U/L (14-59); ALBUMIN 3.4 g/dL (3.4-5.0); ALKALINE PHOSPHATASE 107 U/L (46-116); ANION GAP 11.9 mEq/L (7-13); ASPARTATE AMNIOTRANSFERASE,AST 20 U/L (15-37); BILIRUBIN TOTAL 0.3 mg/dL (0.2-1.0); BLOOD UREA NITROGEN,BUN 26 mg/dL (7-18); BUN/CREATININE RATIO 19.7 (No establ ref range); CARBON DIOXIDE,CO2 30 mmol/L (21-32); CHLORIDE,CL 101 mmol/L (98-107); CREATININE 1.32 mg/dL (0.55-1.02); GLUCOSE RANDOM 103 mg/dL (70-99); MAGNESIUM 1.9 mg/dL (1.8-2.4); POTASSIUM,K 3.9 mmol/L (3.5-5.1); PROTEIN TOTAL,TP 7.4 g/dL (6.4-8.2); SODIUM,NA 139 mmol/L (136-145)
[2022-11-21 21:09] LABS: C-REACTIVE PROTEIN < 0.2 mg/dL (0.0-0.9); ESTIMATED GFR 44 mL/min (>=60)
[2022-11-21 21:17] LABS: B-TYPE NATRIURETIC PEPTIDE,BNP 18 pg/ml (0-100)
[2022-11-21] MEDS ORDERED: Ketorolac 30 MG/ML SDV IVPUSH ONE (21:41)
[2022-11-21 22:10] LABS: APPEARANCE,URINE CLEAR (CLEAR); BILIRUBIN,URINE NEGATIVE (NEGATIVE); COLOR,URINE YELLOW (YELLOW); GLUCOSE,URINE NEGATIVE (NEGATIVE); KETONES,URINE NEGATIVE (NEGATIVE); LEUKOCYTE ESTERASE,URINE NEGATIVE (NEGATIVE); NITRITE,URINE NEGATIVE (NEGATIVE); OCCULT BLOOD,URINE TRACE-INTACT (NEGATIVE); PROTEIN,URINE NEGATIVE (NEGATIVE); UROBILINOGEN,URINE 0.2 mg/dL (0.2-1.0)
[2022-11-21 22:22] LABS: WBC,URINE NOT SEEN /HPF (0-5/HPF)
[2022-11-21 22:23] LABS: BACTERIA,URINE FEW /HPF (0-FEW/HPF); EPITHELIAL CELLS,URINE FEW /HPF (NOT SEEN); RBC,URINE 0-5 /HPF (0-5)
== END 2022-11-21 21:56 | disposition home or self-care (01) ==
LOC: DL.ED 19:50
DX: R07.89 Other chest pain (principal); J44.9 Chronic obstructive pulmonary disease, unspecified; K21.9 Gastro-esophageal reflux disease without esophagitis; I12.9 Hypertensive chronic kidney disease with stage 1 through stage 4 chronic kidney disease, or unspecified chronic kidney disease; N18.30 Chronic kidney disease, stage 3 unspecified; E11.22 Type 2 diabetes mellitus with diabetic chronic kidney disease; E78.5 Hyperlipidemia, unspecified; E66.9 Obesity, unspecified; Z79.899 Other long term (current) drug therapy; Z91.030 Bee allergy status; Z88.5 Allergy status to narcotic agent; Z88.8 Allergy status to other drugs, medicaments and biological substances; Z88.6 Allergy status to analgesic agent
CPT/HCPCS: 36415; 71045; 80053; 81001; 83605; 83735; 83880; 84145; 84484; 85025; 85610; 85730; 86140; 93005; 93010; 96374; 99284; 99285; J1885; J3490

== ENCOUNTER 2022-11-27 07:14 | Day surgery (SDC) | payer MEDICARE, OTHER ==
[2022-11-27] MEDS ORDERED: fentaNYL 100 MCG/2 ML SDV IV ONE ×3 (07:15→08:27)
[2022-11-27] MEDS ORDERED: Midazolam 1 MG/ML 2 ML SDV IV ONE ×3 (07:15→08:28)
[2022-11-27] MEDS ORDERED: Dextrose 5%-0.45% NaCl 1,000 ML IV SCH (07:30)
[2022-11-27] MEDS ORDERED: Sodium Chloride 0.9% 10 ML Syringe FLUSH PRN (07:30)
[2022-11-27] MEDS ORDERED: Midazolam 1 MG/ML 2 ML SDV ONE (08:17)
[2022-11-27] MEDS ORDERED: fentaNYL 100 MCG/2 ML SDV ONE (08:17)
[2022-11-27 11:33] VITALS: BP 132/68; PULSE 77
== END 2022-11-27 10:15 | disposition home or self-care (01) ==
LOC: DL.ENDO 07:14
PROVIDERS: ATTEND Internal Medicine Gastroenterology
DX: K29.50 Unspecified chronic gastritis without bleeding (principal); E78.5 Hyperlipidemia, unspecified; J44.9 Chronic obstructive pulmonary disease, unspecified; I12.9 Hypertensive chronic kidney disease with stage 1 through stage 4 chronic kidney disease, or unspecified chronic kidney disease; N18.9 Chronic kidney disease, unspecified; E66.09 Other obesity due to excess calories; Z90.49 Acquired absence of other specified parts of digestive tract; Z98.890 Other specified postprocedural states; Z90.710 Acquired absence of both cervix and uterus; Z86.010 Personal history of colon polyps; Z87.19 Personal history of other diseases of the digestive system; Z68.41 Body mass index [BMI] 40.0-44.9, adult; Z88.8 Allergy status to other drugs, medicaments and biological substances; Z88.5 Allergy status to narcotic agent; Z88.1 Allergy status to other antibiotic agents
CPT/HCPCS: 87077; J2250; J3010; J7042

== ENCOUNTER 2023-01-03 23:53 | Emergency (ER) | payer MEDICARE, OTHER ==
[2023-01-04] MEDS ORDERED: Ketorolac 30 MG/ML SDV IM ONE (00:13)
[2023-01-04] MEDS ORDERED: Orphenadrine 60 MG/2 ML Inj IM ONE (00:13)
[2023-01-04 00:17] VITALS: BP 130/67; PULSE 104
== END 2023-01-04 01:48 | disposition home or self-care (01) ==
LOC: DL.ED 23:53
DX: S13.4XXA Sprain of ligaments of cervical spine, initial encounter (principal); S40.012A Contusion of left shoulder, initial encounter; S20.222A Contusion of left back wall of thorax, initial encounter; E78.00 Pure hypercholesterolemia, unspecified; J44.9 Chronic obstructive pulmonary disease, unspecified; I12.9 Hypertensive chronic kidney disease with stage 1 through stage 4 chronic kidney disease, or unspecified chronic kidney disease; N18.30 Chronic kidney disease, stage 3 unspecified; E10.22 Type 1 diabetes mellitus with diabetic chronic kidney disease; E66.9 Obesity, unspecified; Z68.38 Body mass index [BMI] 38.0-38.9, adult; Z88.5 Allergy status to narcotic agent; Z88.8 Allergy status to other drugs, medicaments and biological substances; Z88.1 Allergy status to other antibiotic agents; Z91.030 Bee allergy status; Z79.899 Other long term (current) drug therapy; Z79.82 Long term (current) use of aspirin; W10.9XXA Fall (on) (from) unspecified stairs and steps, initial encounter; Y92.009 Unspecified place in unspecified non-institutional (private) residence as the place of occurrence of the external cause
CPT/HCPCS: 72040; 72070; 73010; 96372; 99283; J1885; J2360

== ENCOUNTER 2023-02-25 13:33 | Emergency (ER) | payer MEDICARE, OTHER ==
[2023-02-25] MEDS ORDERED: Sodium Chloride 0.9% 1,000 ML IV ONE (13:45)
[2023-02-25] MEDS ORDERED: diphenhydrAMINE 50 MG/ML SDV IVPUSH ONE (13:45)
[2023-02-25] MEDS ORDERED: Famotidine 20 MG/2 ML SDV IVPUSH ONE (13:45)
[2023-02-25] MEDS ORDERED: methylPREDNISolone Sodium Succinate 125 MG/2 ML SDV IVPUSH ONE (13:45)
[2023-02-25 13:49] VITALS: BP 132/72; PULSE 94
[2023-02-25] MEDS ORDERED: Ketorolac 30 MG/ML SDV IVPUSH ONE (14:38)
== END 2023-02-25 14:51 | disposition home or self-care (01) ==
LOC: DL.ED 13:33
DX: T63.441A Toxic effect of venom of bees, accidental (unintentional), initial encounter (principal); E78.00 Pure hypercholesterolemia, unspecified; J44.9 Chronic obstructive pulmonary disease, unspecified; I12.9 Hypertensive chronic kidney disease with stage 1 through stage 4 chronic kidney disease, or unspecified chronic kidney disease; E10.22 Type 1 diabetes mellitus with diabetic chronic kidney disease; N18.30 Chronic kidney disease, stage 3 unspecified; K21.9 Gastro-esophageal reflux disease without esophagitis; E66.9 Obesity, unspecified; F17.210 Nicotine dependence, cigarettes, uncomplicated; Z88.5 Allergy status to narcotic agent; Z88.8 Allergy status to other drugs, medicaments and biological substances; Z88.1 Allergy status to other antibiotic agents; Z88.2 Allergy status to sulfonamides; Z91.030 Bee allergy status; Z79.82 Long term (current) use of aspirin; Z79.899 Other long term (current) drug therapy; Z68.38 Body mass index [BMI] 38.0-38.9, adult
CPT/HCPCS: 96374; 96375; 99283; 99283-25; J1200; J1885; J2930; J3490; J7030

== ENCOUNTER 2023-04-29 19:50 | Emergency (ER) | payer MEDICARE, OTHER ==
[2023-04-29 20:52] LABS: BASOPHILS PERCENT AUTO 0.2 % (0.0-1.0); EOSINOPHILS PERCENT AUTO 2.4 % (1.0-3.0); HEMATOCRIT 46.9 % (37.0-47.0); HEMOGLOBIN 15.5 g/dL (12.0-16.0); LYMPHOCYTES PERCENT AUTO 21.9 % (20.5-50.1); MEAN CORPUSCULAR HEMOGLOBIN 29.3 pg (27.0-34.0); MEAN CORPUSCULAR VOLUME 88.7 fL (80-100); MONOCYTES PERCENT AUTO 7.2 % (2-8); NEUTROPHILS PERCENT AUTO 68.3 % (42.2-75.2); PLATELET COUNT,PLT 360 10^3/uL (150-450); RED BLOOD CELL COUNT 5.29 10^6/uL (4.2-5.4); WHITE BLOOD CELL COUNT,WBC 14.7 10^3/uL (5.0-10.0)
[2023-04-29 21:27] LABS: A/G RATIO 0.67; ALANINE AMINOTRANSFERASE,ALT 24 U/L (14-59); ALBUMIN 3.3 g/dL (3.4-5.0); ALKALINE PHOSPHATASE 121 U/L (46-116); ANION GAP 13.8 mEq/L (7-13); ASPARTATE AMNIOTRANSFERASE,AST 13 U/L (15-37); BILIRUBIN TOTAL 0.3 mg/dL (0.2-1.0); BLOOD UREA NITROGEN,BUN 18 mg/dL (7-18); BUN/CREATININE RATIO 15.5 (No establ ref range); CALCIUM 9.1 mg/dL (8.5-10.1); CARBON DIOXIDE,CO2 28 mmol/L (21-32); CHLORIDE,CL 98 mmol/L (98-107); CREATININE 1.16 mg/dL (0.55-1.02); ESTIMATED GFR 52 mL/min (>=60); GLUCOSE RANDOM 143 mg/dL (70-99); POTASSIUM,K 3.8 mmol/L (3.5-5.1); PROTEIN TOTAL,TP 8.2 g/dL (6.4-8.2); SODIUM,NA 136 mmol/L (136-145)
[2023-04-29] MEDS ORDERED: Azithromycin 250 MG Tab PO ONE (21:49)
[2023-04-29 22:55] VITALS: BP 126/86; PULSE 106
== END 2023-04-29 21:57 | disposition home or self-care (01) ==
LOC: DL.ED 19:50
DX: J40 Bronchitis, not specified as acute or chronic (principal); I12.9 Hypertensive chronic kidney disease with stage 1 through stage 4 chronic kidney disease, or unspecified chronic kidney disease; E78.00 Pure hypercholesterolemia, unspecified; J44.9 Chronic obstructive pulmonary disease, unspecified; N18.30 Chronic kidney disease, stage 3 unspecified; E11.22 Type 2 diabetes mellitus with diabetic chronic kidney disease; E66.9 Obesity, unspecified; K21.9 Gastro-esophageal reflux disease without esophagitis; Z79.82 Long term (current) use of aspirin; Z79.899 Other long term (current) drug therapy; Z91.030 Bee allergy status; Z88.0 Allergy status to penicillin; Z88.1 Allergy status to other antibiotic agents; Z88.6 Allergy status to analgesic agent; Z88.5 Allergy status to narcotic agent; Z88.8 Allergy status to other drugs, medicaments and biological substances; Z90.710 Acquired absence of both cervix and uterus
CPT/HCPCS: 36415; 71046; 80053; 85025; 99285; A9270

== ENCOUNTER 2024-07-12 16:25 | Emergency (ER) | payer MEDICARE, OTHER ==
[2024-07-12] MEDS ORDERED: Sodium Chloride 0.9% 10 ML Syringe FLUSH PRN ×2 (16:51)
[2024-07-12] MEDS: Sodium Chloride 0.9% 1,000 ML IV SCH (17:08)
[2024-07-12] MEDS: Meclizine 12.5 MG Tab PO ONE (17:09)
[2024-07-12 17:11] LABS: BASOPHILS PERCENT AUTO 0.4 % (0.0-1.0); EOSINOPHILS PERCENT AUTO 3.5 % (1.0-3.0); HEMOGLOBIN 15.6 g/dL (12.0-16.0); LYMPHOCYTES PERCENT AUTO 24.8 % (20.5-50.1); MEAN CORPUSCULAR HGB CONC 32.5 g/dL (33.0-35.0); MEAN CORPUSCULAR VOLUME 89.2 fL (80-100); MONOCYTES PERCENT AUTO 8.5 % (2-8); NEUTROPHILS PERCENT AUTO 62.8 % (42.2-75.2); PLATELET COUNT,PLT 318 10^3/uL (150-450); RED BLOOD CELL COUNT 5.38 10^6/uL (4.2-5.4); WHITE BLOOD CELL COUNT,WBC 11.3 10^3/uL (5.0-10.0)
[2024-07-12 17:41] LABS: A/G RATIO 0.73; ALANINE AMINOTRANSFERASE,ALT 22 U/L (14-59); ALBUMIN 3.2 g/dL (3.4-5.0); ALKALINE PHOSPHATASE 111 U/L (46-116); ANION GAP 11.1 mEq/L (7-13); ASPARTATE AMNIOTRANSFERASE,AST 13 U/L (15-37); BILIRUBIN TOTAL 0.3 mg/dL (0.2-1.0); BLOOD UREA NITROGEN,BUN 21 mg/dL (7-18); BUN/CREATININE RATIO 18.3 (No establ ref range); CALCIUM 8.8 mg/dL (8.5-10.1); CARBON DIOXIDE,CO2 32 mmol/L (21-32); CHLORIDE,CL 104 mmol/L (98-107); CREATININE 1.15 mg/dL (0.55-1.02); EST CRCL DRUG DOSING (CG) 39.87 mL/min; ESTIMATED GFR 52 mL/min (>=60); GLUCOSE RANDOM 116 mg/dL (70-99); POTASSIUM,K 4.1 mmol/L (3.5-5.1); PROTEIN TOTAL,TP 7.6 g/dL (6.4-8.2); SODIUM,NA 143 mmol/L (136-145)
[2024-07-12 17:45] LABS: PROTHROMBIN TIME 10.8 SEC (9.0-12.0)
[2024-07-12 18:49] VITALS: BP 146/79; PULSE 70
[2024-07-12] MEDS: Meclizine 12.5 MG Tab ONE (18:57)
== END 2024-07-12 19:16 | disposition home or self-care (01) ==
LOC: DL.ED 16:25
DX: R42 Dizziness and giddiness (principal); E78.00 Pure hypercholesterolemia, unspecified; J44.9 Chronic obstructive pulmonary disease, unspecified; I12.9 Hypertensive chronic kidney disease with stage 1 through stage 4 chronic kidney disease, or unspecified chronic kidney disease; N18.9 Chronic kidney disease, unspecified; E10.22 Type 1 diabetes mellitus with diabetic chronic kidney disease; Z86.16 Personal history of COVID-19; Z88.5 Allergy status to narcotic agent; Z88.8 Allergy status to other drugs, medicaments and biological substances; Z91.030 Bee allergy status; Z79.899 Other long term (current) drug therapy; Z90.49 Acquired absence of other specified parts of digestive tract
CPT/HCPCS: 36415; 70450; 71045; 80053; 82947; 84484; 85025; 85610; 93005; 96360; 99284-25; A9270-GY; J7030

== ENCOUNTER 2024-09-17 22:51 | Emergency (ER) | payer MEDICARE, OTHER ==
[2024-09-17 23:07] VITALS: PULSE 90
[2024-09-17] MEDS ORDERED: Sodium Chloride 0.9% 10 ML Syringe FLUSH PRN (23:08)
[2024-09-17] MEDS: diphenhydrAMINE 50 MG/ML SDV IVPUSH ONE (23:21)
[2024-09-17] MEDS: Metoclopramide 10 MG/2 ML SDV IVPUSH ONE (23:21)
[2024-09-17] MEDS: Labetalol 20 MG/4 ML Syringe IVPUSH ONE (23:58)
[2024-09-18 00:28] VITALS: BP 160/75
[2024-09-18] MEDS: Hydrochlorothiazide 25 MG Tab PO ONE (00:53)
== END 2024-09-18 01:14 | disposition home or self-care (01) ==
LOC: DL.ED 22:51
DX: I16.0 Hypertensive urgency (principal); I10 Essential (primary) hypertension; K21.9 Gastro-esophageal reflux disease without esophagitis; E66.9 Obesity, unspecified; E10.9 Type 1 diabetes mellitus without complications; E78.00 Pure hypercholesterolemia, unspecified; Z88.6 Allergy status to analgesic agent; Z88.8 Allergy status to other drugs, medicaments and biological substances; Z91.030 Bee allergy status; Z79.82 Long term (current) use of aspirin; Z79.899 Other long term (current) drug therapy; Z90.49 Acquired absence of other specified parts of digestive tract; Z90.710 Acquired absence of both cervix and uterus
CPT/HCPCS: 70450; 96374; 96375; 99284; A9270; J1200; J1920; J2765

== ENCOUNTER 2024-12-18 20:49 | Emergency (ER) | payer MEDICARE, OTHER ==
[2024-12-18 21:20] VITALS: BP 170/91; PULSE 86
[2024-12-18 21:31] LABS: PLATELET COUNT,PLT 292 10^3/uL (150-450); RED BLOOD CELL COUNT 5.75 10^6/uL (4.2-5.4); WHITE BLOOD CELL COUNT,WBC 10.5 10^3/uL (5.0-10.0)
[2024-12-18 21:36] LABS: BASOPHILS PERCENT AUTO 0.6 % (0.0-1.0); EOSINOPHILS PERCENT AUTO 4.3 % (1.0-3.0); LYMPHOCYTES PERCENT AUTO 35.6 % (20.5-50.1); MONOCYTES PERCENT AUTO 8.7 % (2-8); NEUTROPHILS PERCENT AUTO 50.8 % (42.2-75.2)
[2024-12-18 21:50] LABS: INR 1.0 (0.9-1.2); PTT,PARTIAL THROMBOPLSTIN TIME 25.0 SEC (22.0-34.0)
[2024-12-18 21:55] LABS: LACTIC ACID 1.0 mmol/L (0.4-2.0)
[2024-12-18 22:01] LABS: APPEARANCE,URINE SLIGHTLY CLOUDY (CLEAR); GLUCOSE,URINE NEGATIVE (NEGATIVE); OCCULT BLOOD,URINE TRACE-INTACT (NEGATIVE)
[2024-12-18 22:05] LABS: EOSINOPHILS PERCENT MAN 5 % (1-3); LYMPHOCYTES PERCENT MAN 30 % (20-50); MONOCYTES PERCENT MAN 8 % (2-8); SEG NEUTROPHILS PERCENT MAN 57 % (42-75)
[2024-12-18 22:08] LABS: EPITHELIAL CELLS,URINE FEW /HPF (NOT SEEN)
[2024-12-18 22:17] LABS: ALANINE AMINOTRANSFERASE,ALT 26 U/L (14-59); ASPARTATE AMNIOTRANSFERASE,AST 17 U/L (15-37); BILIRUBIN TOTAL 0.3 mg/dL (0.2-1.0); BLOOD UREA NITROGEN,BUN 27 mg/dL (7-18); CARBON DIOXIDE,CO2 32 mmol/L (21-32); CHLORIDE,CL 104 mmol/L (98-107); CREATINE KINASE,CK 62 U/L (16-191); CREATININE 1.06 mg/dL (0.55-1.02); EST CRCL DRUG DOSING (CG) 42.34 mL/min; GLUCOSE RANDOM 122 mg/dL (70-99); POTASSIUM,K 4.2 mmol/L (3.5-5.1); PROTEIN TOTAL,TP 7.6 g/dL (6.4-8.2); SODIUM,NA 142 mmol/L (136-145)
[2024-12-18 22:18] LABS: A/G RATIO 0.77; ESTIMATED GFR 57 mL/min (>=60)
[2024-12-18] MEDS: diphenhydrAMINE 50 MG/ML SDV IVPUSH ONE (22:54)
[2024-12-18] MEDS: Ketorolac 30 MG/ML SDV IVPUSH ONE (23:12)
[2024-12-18] MEDS: Take Home: Ondansetron 4 MG Tab.DIS, 5 Tab Pack PO ONE (23:30)
[2024-12-24 10:47] LABS: WEST NILE AB, SERUM 0.02 IV (<=0.89)
== END 2024-12-18 23:36 | disposition home or self-care (01) ==
LOC: DL.ED 20:49
DX: R53.81 Other malaise (principal); R53.83 Other fatigue; M79.10 Myalgia, unspecified site; I12.9 Hypertensive chronic kidney disease with stage 1 through stage 4 chronic kidney disease, or unspecified chronic kidney disease; N17.9 Acute kidney failure, unspecified; J44.9 Chronic obstructive pulmonary disease, unspecified; K21.9 Gastro-esophageal reflux disease without esophagitis; E11.9 Type 2 diabetes mellitus without complications; Z88.5 Allergy status to narcotic agent; Z88.8 Allergy status to other drugs, medicaments and biological substances; Z91.030 Bee allergy status; Z79.82 Long term (current) use of aspirin; Z79.899 Other long term (current) drug therapy
CPT/HCPCS: 36415; 71046; 80053; 81001; 82550; 82607; 83605; 83690; 83735; 84484; 85025; 85610; 85730; 86140; 86788; 93005; 93010; 96374; 96375; 99284; 99285-25; J1200; J1885; Q0162